=== PATIENT | female | born 1935 | race Caucasian/White ===

== ENCOUNTER 2018-12-11 20:51 | Inpatient (IN) | payer MEDICARE, OTHER ==
[~2018-12-11 20:51] MED LIST: ISOVUE-370 76%-LOCM 1 ML ONE
[2018-12-11] MEDS ORDERED: Ondansetron ODT 4 MG TAB PO PRN (22:08)
[2018-12-11] MEDS ORDERED: Ondansetron PF 4 MG/2 ML Vial IVP PRN (22:08)
[2018-12-11] MEDS ORDERED: Lactated Ringer's 1,000 ML IV SCH ×2 (22:15→22:30)
[2018-12-11] MEDS ORDERED: Vancomycin HCl 0.75 GM in Premix Bag 1 BAG IVPB SCH (22:15)
[2018-12-11] MEDS ORDERED: Potassium Chloride 20 MEQ TAB PO SCH (22:45)
[2018-12-11] MEDS ORDERED: Piperacillin/Tazobactam 2.25 GM in Sodium Chloride 0.9% 100 ML IVPB SCH (22:45)
[2018-12-11 22:48] LABS: Actual Bicarbonate (HCO3a) 13.9 mEq/L (22-28); Base Excess (BEa) -11.3 mEq/L (-2.0 to +3.0); Calcium, Ionized 1.41 mmol/L (1.12-1.30); Carboxyhemoglobin (COHb) 1.2 gm% (0.0-3.0); Hemoglobin (Hb) 10.4 g/dL (12.0-16.0); O2 Tension (PaO2) 70.8 mmHg (> 60.0); Potassium - ABG Lab 3.26 mmol/L (3.70-5.30)
[2018-12-11 22:50] LABS: Puncture Site RRA
--- NOTE | 2018-12-11 22:50 | PDOC.FPRHP ---
- History of Present Illness Chief Complaint: weakness History of Present Illness: Mrs. Sharma is an 83yo CF with h/o HTN, HLD who presents as a transfer from [place] for GI bleed, generalized weakness, and concern for metastatic cancer. Pt initially was admitted in [place] by her PCP for generalized weakness and melena x2-3 weeks. Pt's initial work up included a CT showed multiple nodules in lungs as well as extensive masses replacing most of the normal hepatic parenchyma; enlarged lynph nodes in LLQ adjacent to segment of sigmoid colon with bowel wall thickening. Dr. Hall was consulted who planned for colonoscopy; however pt was unable to tolerate bowel prep and began to have a change in clinical status on the morning of transfer. She also began to have an elevated WBC and O2 demand. PCP and Dr. Hall then recommended transfer to [facility] for further eval and management. Family reports pt began to experienced AMS, increased weakness, difficulty swallowing as well as cough and choking with any PO intake. Family also states patient was at her baseline mentation approx 1 week ago but has had a steady but rapid decrease in mentation and activity over this time. She also was treated with abx for a UTI approx 2 weeks ago. Pt currently denies any abdominal pain, no n/v, fever/chills, or chest pain. SHe does endorse constipation and melena x3 weeks, last BM 3 days ago. - Allergies/Adverse Reactions Allergies Allergy/AdvReac Type Severity Reaction Status Date / Time adhesive Allergy Verified 12/08/18 16:38 coconut Allergy Verified 12/08/18 16:38 - Home Medications Medication Instructions Recorded Confirmed Type Diltiazem HCl [Cardizem CD] 240 mg PO DAILY cap 12/11/18 Rx Famotidine [Pepcid] 20 mg PO BID tab 12/11/18 Rx Ipratropium/Albuterol Sulfate 3 ml EZPAP [id number] PRN neb 12/11/18 Rx [DuoNeb] Lactated Ringer's 1,000 ml IV .[id number] bag 12/11/18 Rx Pantoprazole [Protonix] 40 mg PO BID tab 12/11/18 Rx Piperacillin/Tazobactam [Zosyn] 2.25 gm IVPB Q8HR #0 vial 12/11/18 Rx - History PMHx: HTN, HLD, Tachycardia, allergic rhinitis, OA PSHx: foot surgery FHx: Father - heart problems; Mother - CHF, COPD, DM; siblings - heart problems Social: Recently , non-smoker, 1 adult son who is mPOA, social drinker, no illicit drug use - Review of Systems ROS unobtainable: due to mental status (ROS may not be accurate) General: reports: weight/appetite/sleep changes (decreased), fatigue. denies: fever/chills, night sweats Eyes: denies: vision changes ENT: denies: nasal congestion, rhinorrhea Respiratory: reports: cough (with PO intake), shortness of breath. denies: congestion, exercise intolerance Cardiovascular: denies: chest pain, palpitation, edema Gastrointestinal: reports: constipation, GI bleeding (melena). denies: nausea, vomiting, diarrhea, abdominal pain Genitourinary: denies: incontinence, dysuria, polyuria Skin: denies: rashes, lesions Musculoskeletal: denies: pain Neurological: reports: weakness. denies: numbness, syncope - Vital signs BP: 105/53 HR: 72 RR: 20 Tmax: 97.4 Pox: 93% on 2.5L Wt: 57kg - Physical Exam Constitutional: NAD, other (A/O x1, time only, slow to answer, drowsy appearing. Must be asked questions repeatly to obtain answer.) HEENT: normocephalic and atraumatic, PERRLA, EOMI, conjunctiva clear, MMM Neck: supple, trachea midline Chest: no-tender to palpation Heart: RRR, normal S1/S2, no murmurs/rubs/gallops, pulses present, other (1+ pitting edema to BL ankles, left leg appears slightly more swollen then right) Lungs: CTAB, no respiratory distress, good air movement, no rales/rhonchi, no wheezing Abdomen: soft, non-tender, bowel sounds present, no masses/distention Musculoskeletal: normal structure Neurological: no focal deficit Skin: no rash/lesions Heme/Lymphatic: no unusual bruising or bleeding FMR H&P: Results - Labs Lab results: Ammonia 22 umol/L (18-72) 12/11/18 22:35 Additional comment: Labs from [place]: WBC 25 Hb 10.4 Plt 400 K 3.0 Cr 1.48 BUN 26 Ca 10.8 Tb 2.3 AST 429 ALT 111 AP 469 TP 5.4 Alb 2.5 - Radiology Interpretation CT scan - pelvis Status: report reviewed by me (Multiple nodules in lungs as well as extensive masses replacing most of the normal hepatic parenchyma; enlarged lynph nodes in LLQ adjacent to segment of sigmoid colon with bowel wall thickening.) FMR H&P: A/P - Problem List (1) GI bleed Current Visit: Yes Status: Acute Code(s): K92.2 - GASTROINTESTINAL HEMORRHAGE, UNSPECIFIED Qualifiers: GI bleed type/associated pathology: melena Qualified Code(s): K92.1 - Melena (2) Hypercalcemia Current Visit: Yes Status: Acute Code(s): E83.52 - HYPERCALCEMIA (3) Hypokalemia Current Visit: Yes Status: Acute Code(s): E87.6 - HYPOKALEMIA (4) Transaminitis Current Visit: Yes Status: Acute Code(s): R74.0 - NONSPEC ELEV OF LEVELS OF TRANSAMNS & LACTIC ACID DEHYDRGNSE (5) Tachycardia Current Visit: Yes Status: Acute Code(s): R00.0 - TACHYCARDIA, UNSPECIFIED (6) Acute respiratory failure with hypoxia Current Visit: Yes Status: Acute Code(s): J96.01 - ACUTE RESPIRATORY FAILURE WITH HYPOXIA (7) Liver mass, right lobe Current Visit: No Status: Acute Code(s): R16.0 - HEPATOMEGALY, NOT ELSEWHERE CLASSIFIED (8) Hypertension Current Visit: No Status: Chronic Code(s): I10 - ESSENTIAL (PRIMARY) HYPERTENSION (9) HLD (hyperlipidemia) Current Visit: Yes Status: Acute Code(s): E78.5 - HYPERLIPIDEMIA, UNSPECIFIED - Plan Mrs. Sharma is an 83yo CF with h/o HTN, HLD who presents as a transfer from [place] for GI bleed, generalized weakness, and concern for metastatic cancer. #GI Bleed 2/2 suspected metastatic cancer - Melena x3 weeks, currently asx, Hb stable at 10.4 but down from 12 at previous visits - No acute bleed - 2/2 bleed will hold VTE anticoagulation - Known to Dr. Hall, consulted, apprec recs - NPO for possibly endoscopy - Protonix for GI ppx # Acute Hypoxic respiratory failure - Increased O2 demands at [facility], on 2.5L and satting low 90s, denies dyspnea - left leg edema > right, concern for PE - will order CTA chest for PE r/o - will monitor respiratory status closely #Liver mets and elevated LFTs - LFTs elevated from baseline - likely 2/2 GI malignancy, pending GI workup - will trend levels - with altered mentation, will order ammonia level - will check Coag studies #AMS - occurring for past 1 week, decline in last 24 hours - will order ammonia and ABG to assess hypercapnia - likely delerium vs dementia vs hepatic encephalopathy vs hypercapnic encephalopathy - will monitor #Leukocytosis - VSS - started on Zosyn at [place], will cont and add Vanc - UA, CX, and BCx ordered - will check Procal #Hypokalemia - 3.0 on last BMP, will replace and monitor with daily BMP - will check Mg and Phos # MARCO ANTONIO on CKDII - Baseline Cr 1.0 at previous visits, likely prerenal, will continue IVF of LR @ 150 - monitor daily BMP #Hypercalcemia - Corrected Ca 12.0, likely 2/2 malignancy and hypovolemia - LR @150cc/hr x3 hours, will reassess volume status and continue IVF as needed - consider further workup including PTH and Vit D if does not correct #Elevated TSH - TSH 8 at previous hospital, will check free T4 and T3 VTE: SCDs 2/2 GI bleed Diet: NPO for GI recs Code: Full - previously DNR however revoked due to met diagnosis. Son is mPOA and agreed to revoke at this time. Consider Palliative Care consult pending family wishes. Disposition/LOS: Admitted to [facility] for monitoring. Pending GI eval, resolution of MARCO ANTONIO, leukocytosis eval. Anticipate hospitalization 4-5 days. FMR H&P: Upper Level - Pertinent history I was present with the planner internship during the HPI. I asked questions as well. I reviewed the above plan and agree. I made any edits as needed. - Pertinent findings General: Pt only Alert and Orientedx1. No acute distress. Cardio: RRR, no murmurs or gallops Resp: CTA-B, no wheezes or crackles Abdomen: Mildly tender to palpation. Possibly some mild hepatomegaly Ext: +1 edema in LE bilaterally. Pt labs reviewed from [place]. WBC has been uptrending the last few days. WBC 25. Pt corrected calcium for hypoalbunemia is 12. Pt has mild hypercalcemia. Liver Enzymes continue to trend upwards. Bili is elevated. - Plan Date/Time: 12/11/18 3539 I, Timothy Gomes, PGY-3, have evaluated this patient and agree with findings/ plan as outlined by planner internship resident. Pertinent changes/additions are listed here. At this time pt has had history of melenotic stools. She has continued to have increased weakness. She continues to decompensate from a respiratory standpoint. She is requiring O2. Pt had CT abdomen pelvis which showed Colon mass and Liver Mets. GI has been consulted- Dr. Hall. Follow recs. Pt liver enzymes continue to trend upwards with bilirubin. Will check RUQ-US. Will get ammonia level as patient has waxing and waning confusion. Pt corrected Ca is 12. Mild hypercalcemia. WIll tx with mildly aggresive fluid hydration. Could be attributing to confusion. Pt also has worsening leukocytosis. Has been on zosyn for a few days. Will check blood/urine cx and check procal. Will add vancomycin for abx coverage. Pt at this time is Full code per Son is MPOA. Discussed prognosis with family and voiced understanding at this time. Will await Isabel recs and consider Palliative care in future. Please see above plan for detailed plan.
[2018-12-11 23:14] LABS: INR-International Normal Ratio 1.3; PTT 35.2 SEC (22.9-36.1); Prothrombin Time 15.8 SEC (12.0-14.7)
--- NOTE | 2018-12-11 23:20 | CT ---
CT angiogram of chest performed with intravenous contrast enhancement with 3-D reconstructions HISTORY: Shortness of breath. COMPARISON: 12/06/2018 study. FINDINGS: There is been development of mild bilateral pleural effusions with bibasilar atelectatic ap pearing lung changes right greater than left. These changes are entirely new as compared to the prior examination and are obscuring the lower lobe pulmonary nodules seen on the prior exam. Other pu lmonary nodules are still identified. The pulmonary artery opacification is poor and not diagnostic for evaluation for pulmonary embolus CT Hounsfield units are only 116. The thoracic aorta is normal in caliber. Liver metastases are again demonstrated. IMPRESSION: 1. Nondiagnostic study for evaluation for pulmonary embolus. 2. Development of mild bilateral pleural effusions with marked bibasilar atelectatic lung changes. 3. Pulmonary nodules and liver metastases.
[2018-12-11] MEDS ORDERED: Vancomycin HCl 1.5 GM in Sodium Chloride 0.9% 250 ML 300 ML IVPB SCH (23:30)
[2018-12-11 23:33] LABS: Magnesium 1.7 mg/dL (1.6-2.6); Phosphorus 3.3 mg/dL (2.3-4.7)
[2018-12-12 00:01] LABS: Free T4 (Free Thyroxine) 0.75 ng/dL (0.70-1.48)
--- NOTE | 2018-12-12 00:42 | PDOC.EVN ---
Event Note - Event Note Event Note: Date/Time: 12/12/18 0040 I personally evaluated the patient and discussed the management with Dr. Vikki Hayes on 12/11/2018 I agree with the History, Examination, Assessment and Plan documented above with any addition or exceptions noted below - 83 yo female with h/o HTN, HLD, CAD transferred from [place] where patient had been admitted for dehydration and deconditioning. Prior to admission, patient started to feel weak about 1 month ago. Reports some decreased appetite and energy. Seen in ER on 12/03 and diagnosed with UTI and started on abx. Instructed to follow-up with PCP who also elicited a h/o 16 pound weight loss. Had labs and CT scan performed. Patient also told she has noted some dark, tarry stools for the last [address] showed multiple nodules in lungs as well as extensive masses replacing most if the normal hepatic parenchyma; enlarged lynph nodes in LLQ adjacent to segment of sigmoid colon with bowel wall thickening. Patient was referred to Dr. Hall and he suggested admission due to her weakness in order to get her ready for a colonoscopy. Patient was admitted to [place] on 12/08 by her PCP and patient initially responded to IVF and abx. Today she was noted to be more lethargic and confused, and had decreased O2 sats. Repeat labs also showed increasing liver enzymes and she now endorsed some RUQ pain. T97.4 P72 RR20 BP 105/53 Exam repeated by me and agree with resident's findings. Labs: WBC=-25.0, H/H=10.4/33.9, Uhv=952, Diff=71N/3B/12L, Yn=192, K= 3.0, Pz=808, CO2=16, BUN/Cr=26/1.48, Cahv=852, Ca=10.8, Corrected Ca=12.0, Alb= 2.5, AST/ALT 126/48 -> 429/111, lew phos 625 -> 469, tbili=2.3,TSH=8.5331 A/P: 1 ) Hepatic masses - most likely metastatic cancer - will d/w GI possibility of percutaneous biopsy versus colonoscopy. 2) MARCO ANTONIO/Dehydration- continue IVF and recheck in AM, 3) Possible GI bleed- will trend her H/H. 4) HTN- hold BP for now 5) Leukocytosis - continue vanc/zosyn. Will check U/A and culture given recent h/o UTI. Blood cultures drawn.
[2018-12-12] MEDS: Levothyroxine Sodium 25 MCG TAB PO SCH (05:46)
[2018-12-12] MEDS: Piperacillin/Tazobactam 2.25 GM in Sodium Chloride 0.9% 100 ML IVPB SCH ×3 (05:46→18:31)
[2018-12-12 06:04] LABS: ALT (SGPT) 121 U/L (8-55); AST (SGOT) 482 U/L (5-34); Albumin 2.1 g/dL (3.4-4.8); Alkaline Phosphatase 396 U/L (40-150); Anion Gap 16 mmol/L (10-20); BUN (Urea Nitrogen) 27 mg/dL (9.8-20.1); Bilirubin, Total 2.1 mg/dL (0.2-1.2); Calc. Creatinine Clearance 29 mL/min (70-130); Calcium 10.1 mg/dL (7.8-10.44); Carbon Dioxide 16 mmol/L (23-31); Chloride 108 mmol/L (98-107); Estimated GFR-MDRD 37; Globulin 2.8 g/dL (2.4-3.5); Glucose 72 mg/dL (83-110); Potassium 3.8 mmol/L (3.5-5.1); Protein, Total 4.9 g/dL (6.0-8.3); Sodium 136 mmol/L (136-145)
--- NOTE | 2018-12-12 06:13 | PDOC.FM ---
- Subjective Subjective: Mrs. Sharma appeared calm but was having moderate difficulty breathing during the time of evaluation. She was able to respond to questions and assist with the HPI, but was only A&O x1. She denied any overnight problems, specifically any abdominal pain, chest pain or shortness of breath. Multiple family members were present in the room at the time of evaluation and assisted both with the HPI as well as with coordination with the primary MPOA and the most likely pathway forward. - Objective Vital Signs & Weight: Vital Signs (12 hours) Temp Pulse Resp BP Pulse Ox 12/12/18 04:00 98.5 F 71 20 104/61 93 L 12/12/18 00:00 97.4 F L 72 20 105/53 L 93 L Weight Weight 57.334 kg Result Diagrams: 12/12/18 05:06 12/12/18 05:06 Phys Exam - Physical Examination Constitutional: NAD Moderate difficult breathing with O2 NC at 3L HEENT: PERRLA, moist MMs, sclera anicteric Neck: no nodes, supple, full ROM Respiratory: no wheezing, no rales, no rhonchi, clear to auscultation bilateral Cardiovascular: RRR, no significant murmur, no rub Gastrointestinal: soft, non-tender, no distention Musculoskeletal: no edema, pulses present Neurological: non-focal, moves all 4 limbs Lymphatic: no nodes Skin: no rash Dx/Plan - Plan Plan: 1. GI Bleed 2/2 suspected Metastatic Cancer -Melena x3 weeks, currently asymptomatic, Hg/Hct relatively stable at 9.7/32.1 but down from 12 at previous visits -No acute bleed -2/2 bleed will hold VTE anticoagulation -Dr. Hall (GI) consulted, currently awaiting recommendations -NPO for possibly endoscopy -Protonix for GI ppx 2. Acute Hypoxic Respiratory Failure -Increased O2 demands at [place], on 3L NC with O2 in low 90s - denies dyspnea -Left Leg Edema > Right, concern for PE -CTA Chest: No evidence of PE -Venogram: No evidence of DVTs, bilaterally -Multiple nodules noted within lung parenchema, likely metastatic -Will continue monitor respiratory status closely 3. Liver Metastasis -LFTs elevated from baseline -Likely 2/2 GI malignancy, pending GI workup -Will continue to trend levels -Ammonia: 22 -PT: 15.8 -INR: 1.3 -APTT: 35.2 4. AMS -Occurring for past 1 week, significant decline in last 24 hours -ABG: Pending -Likely delerium vs dementia vs hepatic encephalopathy vs hypercapnic encephalopathy -Will continue to monitor 5. Leukocytosis -Vital signs currently stable -Started on Zosyn at [place], vanc added upon admission -UA: No evidence of Nitrites or WBCs -Urine Culture: No Growth at 24 Hours -Blood Culture: No Growth at 24 Hours -Procal: 5.26 6. Hypokalemia -K 3.0 on admission, currently last BMP, 3.8 on 12/12/18 -Mg: Pending -Phos: Pending 7. MARCO ANTONIO on CKDII -C4: 1.4, up from baseline Cr 1.0 at previous visits, likely prerenal -Continue IV fluid resuscitation - LR @ 150 ml/hr -Continue to monitor daily BMP 8. Hypercalcemia -Corrected Ca 12.0, likely 2/2 malignancy and hypovolemia -LR @ 150 ml/hr - will reassess volume status and continue IVF as needed -Consider further workup including PTH and Vitamin D if Ca does not correct 9. Elevated TSH -TSH 8 at previous hospital -T3: 0.75 -T4: < 1 VTE: SCDs 2/2 GI bleed Diet: NPO for GI recs Code: Full - Previously DNR but Revoked due to Metastatic Cancer Diagnosis. Dispo: Admitted to Telemetry for monitoring. Patient failed initial bowel prep and will require additional GI coordination and recommendations. Anticipate hospitalization > 2 days. Addendum - Attending - Attending Attestation Date/Time: 12/12/18 3988 I personally evaluated the patient and discussed the management with Dr. Rogers. I agree with the History, Examination, Assessment and Plan documented above with any addition or exceptions noted below. Repeat CT, await GI, monitor closely.
[2018-12-12 06:44] LABS: Band 11 % (5-11); Hemoglobin 9.7 g/dL (12.0-16.0); Lymphocytes 10 % (21-51); MDiff Complete? YES; Mean Corpuscular HGB CONC 30.1 g/dL (32.0-36.0); Mean Corpuscular Hemoglobin 26.3 pg (27.0-31.0); Mean Corpuscular Volume 87.4 fL (78.0-98.0); Mean Platelet Volume 6.9 fL (7.4-10.4); Neutrophil 79 % (42-75); Platelet Count 373 thou/uL (130-400); RBC Distribution Width 15.8 % (11.5-14.5); Red Blood Cell (RBC) Count 3.67 mill/uL (4.20-5.40)
[2018-12-12 06:49] LABS: Bacteria/HPF None Seen HPF (None Seen); Bilirubin Negative (Negative); Blood, Urine Negative (Negative); Clarity Clear (Clear); Glucose, Urine (Dipstick) Normal (Negative); Leukocyte Negative Leu/uL (Negative); Nitrite Negative (Negative); Protein, Urine (Dipstick) 20 mg/dL (Neg-Trace); RBC/HPF 0-3 HPF (0-3); Squamous Epithelial None Seen HPF (0-3); WBC/HPF 0-3 HPF (0-3)
[2018-12-12] MEDS: Pantoprazole 40 MG VIAL IVP SCH (07:51)
[2018-12-12] MEDS: Sodium Chloride 0.9% (PF) 10 ML VIAL FS PRN (07:51)
[2018-12-12] MEDS ORDERED: Prevnar 13-Val Conj/PF 0.5 ML SYRINGE IM ONE (09:00)
--- NOTE | 2018-12-12 09:18 | ULT ---
US Gallbladder RUQ HISTORY: Right upper quadrant pain COMPARISON: CT of chest done earlier yesterday. FINDINGS: Real-time imaging of the right upper quadrant shows a normal-appearing gallbladder. The com mon duct is 6 mm. Innumerable liver masses are demonstrated consistent with the previous CT study. The pancreas region is obscured on this exam. The liver measures 22 cm in length IMPRESSION: Diffuse liver masses very suspicious for metastatic disease. Liver is enlarged.
[2018-12-12] MEDS: Lactated Ringer's 1,000 ML IV SCH ×2 (09:20→16:45)
--- NOTE | 2018-12-12 09:21 | ULT ---
US Venous Doppler Bilat HISTORY: Bilateral lower extremity pain and swelling. COMPARISON: None. FINDINGS: Real-time color Doppler evaluation right and left lower extremities were performed from e[place]io in to calf. This includes evaluation the common femoral superficial profundofemoral saphenous popliteal and posterior tibial veins. This shows a patent deep venous system with normal compressibility and augmentation. IMPRESSION: No evidence of DVT of either lower extremity
[2018-12-12] MEDS ORDERED: GoLYTELY 4,000 ml Bottle PO SCH (17:30)
[2018-12-12] MEDS ORDERED: Vancomycin HCl 500 MG in Sodium Chloride 0.9% 100 ML IVPB SCH (23:00)
[2018-12-13] MEDS: Piperacillin/Tazobactam 2.25 GM in Sodium Chloride 0.9% 100 ML IVPB SCH ×5 (01:17→23:53)
[2018-12-13] MEDS: Lactated Ringer's 1,000 ML IV SCH ×2 (01:21→05:54)
--- NOTE | 2018-12-13 05:41 | PDOC.FM ---
- Subjective Subjective: Mrs. Sharma appeared to be slightly out of breath during the time of the evaluation, and complained of having a very poor night due to her ongoing efforts to finish her bowel prep. She was A&O x3, and denies any chest pain, abdominal pain or shortness of breath. She reiterated that she wanted to remain Full Code, and her [id number] stated that the rest of the family was in agreement with her choice. - Objective Vital Signs & Weight: Vital Signs (12 hours) Temp Pulse Resp BP Pulse Ox 12/13/18 04:00 98.9 F 83 22 H 114/45 L 92 L 12/13/18 00:00 99.3 F 77 24 H 109/43 L 94 L 12/12/18 22:00 99.2 F 80 20 12/12/18 20:00 95 12/12/18 19:59 97.7 F 74 20 125/59 L 95 Weight Weight 57.334 kg I&O: 12/11/18 12/12/18 12/13/18 06:59 06:59 06:59 Intake Total 1445 Output Total 600 Balance 845 Result Diagrams: 12/13/18 04:38 12/13/18 04:38 Phys Exam - Physical Examination Tachypneic but A&Ox3 HEENT: PERRLA, sclera anicteric, oral pharynx no lesions Patient appears mildly dehydrated Neck: no nodes, supple, full ROM Respiratory: no wheezing, no rales, no rhonchi, clear to auscultation bilateral Cardiovascular: RRR, no significant murmur, no rub Gastrointestinal: soft, non-tender, no distention Musculoskeletal: pulses present Trace LE edema bilaterally Neurological: non-focal, moves all 4 limbs Lymphatic: no nodes Psychiatric: normal affect, A&O x 3 Skin: no rash Dx/Plan - Plan Plan: 1. GI Bleed 2/2 suspected Metastatic Cancer -Melena x3 weeks, currently asymptomatic, Hg/Hct relatively stable at 9.7/32.1 but down from 12 at previous visits -No acute bleed at this time -2/2 bleed will hold VTE anticoagulation -Dr. Hall (GI) consulted, currently awaiting recommendations -NPO for possibly endoscopy -Protonix for GI prophylaxis 2. Acute Hypoxic Respiratory Failure -Increased O2 demands at [place], on 3L NC with O2 in low 90s - denies dyspnea -Left Leg Edema > Right, concern for PE -CTA Chest: No evidence of PE -Venogram: No evidence of DVTs, bilaterally -Multiple nodules noted within lung parenchema, likely metastatic cancer -Will continue monitor respiratory status closely 3. Liver Metastasis -LFTs elevated from baseline -Likely 2/2 GI malignancy, pending GI workup -Will continue to trend levels -Ammonia: 22 -PT: 15.8 -INR: 1.3 -APTT: 35.2 4. AMS -Occurring for past 1 week, significant decline in last 48 hours -ABG: Mild Metabolic Acidosis -Likely delerium vs dementia vs hepatic encephalopathy vs hypoxic encephalopathy -Will continue to monitor 5. Leukocytosis -Vital signs currently stable -Started on Zosyn at [place], vanc added upon admission -UA: No evidence of Nitrites or WBCs -Urine Culture: No Growth at 24 Hours -Blood Culture: No Growth at 24 Hours -Procal: 5.26 6. Hypokalemia -K 3.0 on admission, currently last BMP, 3.8 on 12/12/18 -Mg: Pending -Phos: Pending 7. MARCO ANTONIO on CKDII -C4: 1.4, up from baseline Cr 1.0 at previous visits, likely prerenal -Continue IV fluid resuscitation - LR @ 150 ml/hr -Continue to monitor daily BMP 8. Hypercalcemia -Corrected Ca 12.0, likely 2/2 malignancy and hypovolemia -LR @ 150 ml/hr - will reassess volume status and continue IVF as needed -Consider further workup including PTH and Vitamin D if Ca does not correct 9. Elevated TSH -TSH 8 at previous hospital -T3: 0.75 -T4: < 1 VTE: SCDs 2/2 GI bleed Diet: NPO for GI recs Code: Full - Previously DNR but Revoked due to Metastatic Cancer Diagnosis. Dispo: Admitted to Telemetry for monitoring. Patient failed initial bowel prep and will require additional GI coordination and recommendations. Anticipate hospitalization > 2 days. Addendum - Attending - Attending Attestation Date/Time: 12/13/18 2446 I personally evaluated the patient and discussed the management with Dr. Rogers. I agree with the History, Examination, Assessment and Plan documented above with any addition or exceptions noted below. I saw Ms. Sharma after her colonoscopy, results pending. She is sleepy but rousable. Will await results and appropriate consultations pending.
[2018-12-13 05:44] LABS: Hemoglobin 9.4 g/dL (12.0-16.0); Mean Corpuscular HGB CONC 31.2 g/dL (32.0-36.0); Mean Corpuscular Hemoglobin 26.9 pg (27.0-31.0); Mean Corpuscular Volume 86.2 fL (78.0-98.0); Mean Platelet Volume 7.1 fL (7.4-10.4); Platelet Count 374 thou/uL (130-400); RBC Distribution Width 15.8 % (11.5-14.5); White Blood Cell (WBC) Count 21.2 thou/uL (4.8-10.8)
[2018-12-13 05:45] LABS: Band 23 % (5-11); Lymphocytes 4 % (21-51); MDiff Complete? YES; Monocytes 9 % (0-10); Neutrophil 64 % (42-75); Nucleated RBC 1 % (0)
[2018-12-13] MEDS: Levothyroxine Sodium 25 MCG TAB PO SCH (05:46)
[2018-12-13 05:48] LABS: ALT (SGPT) 184 U/L (8-55); AST (SGOT) 878 U/L (5-34); Albumin 2.1 g/dL (3.4-4.8); Alkaline Phosphatase 341 U/L (40-150); Anion Gap 19 mmol/L (10-20); BUN (Urea Nitrogen) 30 mg/dL (9.8-20.1); Bilirubin, Total 2.4 mg/dL (0.2-1.2); Calc. Creatinine Clearance 25 mL/min (70-130); Calcium 9.9 mg/dL (7.8-10.44); Carbon Dioxide 14 mmol/L (23-31); Chloride 110 mmol/L (98-107); Estimated GFR-MDRD 32; Globulin 2.9 g/dL (2.4-3.5); Potassium 3.8 mmol/L (3.5-5.1); Sodium 139 mmol/L (136-145)
[2018-12-13] MEDS ORDERED: Dextrose 50% Abboject 50 ML SYRINGE ONE (06:02)
[2018-12-13 06:10] LABS: Glucose 31 mg/dL (83-110)
[2018-12-13] MEDS ORDERED: Dextrose 5% in Water 1,000 ML IV PRN (06:15)
[2018-12-13] MEDS ORDERED: Dextrose 50% Abboject 50 ML SYRINGE SLOW IVP PRN (06:15)
[2018-12-13] MEDS: Dextrose 5%-Lactated Ringers 1,000 ML IV SCH ×3 (07:01→23:53)
[2018-12-13] MEDS: Sodium Chloride 0.9% (PF) 10 ML VIAL FS PRN (08:30)
[2018-12-13] MEDS: Pantoprazole 40 MG VIAL IVP SCH (08:31)
--- NOTE | 2018-12-13 11:18 | CON ---
DATE OF CONSULTATION: 12/12/2018 HISTORY OF PRESENT ILLNESS: Ms. Alicia Sharma is a very pleasant 83-year-old female seen by me 4 days ago in my office and she was referred to me by Dr. Jose Hughes. The patient has been having anorexia, weight loss of 7 pounds over the last 6 weeks. She also had some vague abdominal pain, small frequent stools and hematochezia. The patient came to the ER approximately 10 days ago to have abdominal CAT scan. CAT scan showed multiple liver masses and pulmonary nodules suggestive of metastatic concern. It was felt that the patient have a colonoscopy to look for the source of cancer, though adequate chemotherapy can be tailored. The patient was scheduled to have a colonoscopy this morning at the [facility]. However, yesterday became somewhat dyspneic, obtunded, confused and has been transferred here. Started on IV antibiotics. This morning, she is actually awake, alert, and communicative. Denied any abdominal pain, nausea, or vomiting. She is also on antibiotic therapy. MEDICAL ILLNESSES: Hyperlipidemia SOCIAL HISTORY: She does not smoke, but drinks alcohol socially. PHYSICAL EXAMINATION: GENERAL: She is awake, alert, and communicative. VITAL SIGNS: Afebrile. Pulse is 74, blood pressure is 119/47 NECK: Supple. CARDIOVASCULAR: First and second heart sounds heard. LUNGS: Clear to auscultation. ABDOMEN: Soft. Abdomen is nondistended. Abdomen is nontender. No rebound, or guarding. EXTREMITIES: Reveal no edema. LABORATORY DATA: From today CBC; WBC 21,000, hemoglobin 9.7, hematocrit 32.1, platelets 373,000, polymorphs 79, bands 11, lymphocytes 10. Chemistry shows normal chem 7. Lytes are normal. BUN is 28, bilirubin 0.20, glucose normal, bilirubin 2.3, AST is 46, ALT 47, alkaline phosphatase is elevated .Today bilirubin is 2.1, AST 482, ALT 121,. Abdominal ultrasound today shows hepatomegaly with liver masses. 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 She does have hematochezia, Possibly she could have colonic primary. PLAN: Colonoscopy tomorrow. I did talk to Ms. Sharma. I explained to her the above. I explained to her to see whether she will take the prep today for colonoscopy, and colonoscopy planned for tomorrow. If colonoscopy is negative, we may consider EGD. Job ID: [id number] [id number]
--- NOTE | 2018-12-13 12:48 | OP ---
DATE OF PROCEDURE: 12/13/2018 PROCEDURE PERFORMED: Colonoscopy with polypectomy, biopsy. PREOPERATIVE DIAGNOSIS: An 83-year-old female with anorexia, weight loss, change in bowel habits, and also hematochezia. The patient is undergoing colonoscopy. POSTOPERATIVE DIAGNOSES: 1. Poor preparation, has retained stool in the colon and also right colon. 2. Left-sided diverticular disease. 3. Large polyp in the sigmoid colon area, status post biopsy and polypectomy. DESCRIPTION OF PROCEDURE: The patient was placed on her left lateral position and was given sedation by Anesthesia Department. A rectal exam was done before the scope was advanced into the rectum. No lesions felt on rectal exam. The patient had large amount semi-solid stool, came out, on the rectal exam. A Pentax video colonoscope was introduced into the rectum and advanced all the way into the cecum. The patient had no pathology in the cecum, ascending colon, hepatic flexure. The transverse colon, splenic flexure, no pathology. The patient predominantly had left-sided diverticular disease. A large polypoid lesion in the sigmoid colon was seen. Initially, it was biopsied. However, careful examination revealed that it was on a long, thick stalk. So, it was elected to do a polypectomy. The polypectomy was done in piecemeal, and post polypectomy, the polypectomy site appeared very well cauterized and no bleeding was seen. Water was irrigated and washed out, and I looked at the polypectomy site one more time. No bleeding seen. The colon decompressed and the scope removed. RECOMMENDATION: 1. Keep the patient on clear liquid diet. 2. Await colon biopsy. If the colon biopsy shows malignancy, I believe she needs no more further workup. If the biopsy comes as negative for malignancy, then we have to look for another source of primary cancer. Job ID: [id number] [facility]
[2018-12-13] MEDS ORDERED: PROPOFOL 200 MG/20 ML VIAL ONE (16:47)
[2018-12-13] MEDS ORDERED: PHENYLEPHRINE-NS 100 MCG/ML 10 ML SYRINGE ONE (16:47)
[2018-12-13 22:36] LABS: Vancomycin, Trough 12.5 ug/mL
[2018-12-13] MEDS: Vancomycin HCl 750 MG in Sodium Chloride 0.9% 250 ML 250 ML IVPB SCH (23:40)
[2018-12-14] MEDS: Piperacillin/Tazobactam 2.25 GM in Sodium Chloride 0.9% 100 ML IVPB SCH ×4 (05:29→23:51)
[2018-12-14] MEDS: Levothyroxine Sodium 25 MCG TAB PO SCH (05:30)
--- NOTE | 2018-12-14 06:02 | PDOC.FM ---
- Subjective Subjective: Mrs. Sharma appeared tired but was resting comfortably at the time of examination. Her son and niece were in the room, and a lengthy discussion was had about the likelihood of malignancy due to imaging results suggestive of metastatic disease. All parties are in agreement that aggressive treatment is desired, but they were receptive to the idea of consulting Palliative Care in order to have a full spectrum of treatment options available. They were extremely distressed about the possibility of metastatic disease, but optimistic about treatment. - Objective Vital Signs & Weight: Vital Signs (12 hours) Temp Pulse Resp BP Pulse Ox 12/14/18 04:00 97.6 F 79 24 H 143/62 H 92 L 12/14/18 00:00 77 24 H 12/13/18 20:00 97.7 F 79 28 H 131/62 100 Weight Weight 69.536 kg I&O: 12/12/18 12/13/18 12/14/18 06:59 06:59 06:59 Intake Total 4145 1540 Output Total 1150 425 Balance 2995 1115 Result Diagrams: 12/14/18 05:19 12/14/18 05:19 Phys Exam - Physical Examination Constitutional: NAD HEENT: PERRLA, moist MMs, sclera anicteric, oral pharynx no lesions Neck: no nodes, supple, full ROM Respiratory: no wheezing, no rales, no rhonchi, clear to auscultation bilateral (Poor air movement with diminished respiratory effort.) Cardiovascular: RRR, no significant murmur, no rub Gastrointestinal: soft Mild distention with TTP in RUQ Musculoskeletal: no edema, pulses present Neurological: non-focal, normal sensation Lymphatic: no nodes Psychiatric: normal affect Skin: no rash Dx/Plan - Plan Plan: 1. GI Bleed 2/2 suspected Metastatic Cancer -Melena x3 weeks, currently asymptomatic, Hg/Hct relatively stable at 9.7/32.1 but down from 12 at previous visits -No acute bleed at this time -Hold VTE anticoagulation -Dr. aHll (GI) performed colonoscopy on 12/13/18, currently awaiting recommendations -May likely return to Heart Healthy Diet -Protonix for GI prophylaxis 2. Acute Hypoxic Respiratory Failure -Increased O2 demands at [facility], on 3L NC with O2 in low 90s - denies dyspnea -CTA Chest: No evidence of PE -Venogram: No evidence of DVTs, bilaterally -Multiple nodules noted within lung parenchema, likely metastatic cancer -Will continue monitor respiratory status closely 3. Liver Metastasis -LFTs elevated from baseline -Likely 2/2 to GI malignancy, pending GI workup and biopsy from colonoscopy -Ammonia: 22 -PT: 15.8 -INR: 1.3 -APTT: 35.2 4. AMS -Occurring for past 1 week, significant decline in last 48 hours -ABG: Mild Metabolic Acidosis -Likely delerium vs dementia vs hepatic encephalopathy vs hypoxic encephalopathy -Will continue to monitor 5. Leukocytosis -Vital signs currently stable -Started on Zosyn at [facility], vanc added upon admission -UA: No evidence of Nitrites or WBCs -Urine Culture: No Growth at 48 Hours -Blood Culture: No Growth at 48 Hours -Procal: 5.26 6. Hypokalemia, resolved -K 3.0 on admission, currently last BMP, 3.8 on 12/12/18 -M.7 -Phos: 3.3 7. MARCO ANTONIO on CKDII -C4: 1.4, up from baseline Cr 1.0 at previous visits, likely prerenal -Continue IV fluid resuscitation - LR @ 150 ml/hr -Continue to monitor daily BMP 8. Hypercalcemia, resolved -Corrected Ca initially 12.0, likely 2/2 malignancy and hypovolemia -LR @ 150 ml/hr - will continue to reassess volume status and continue IVF as needed 9. Elevated TSH -TSH 8 at previous hospital -T3: 0.75 -T4: < 1 VTE: SCDs Diet: May likely return to Heart Healthy Diet Code: Full - Previously DNR but Revoked due to Metastatic Cancer Diagnosis. Dispo: Admitted to Telemetry for monitoring. Colonoscopy performed on 12/13/18 - awaiting biopsy results and further GI recommendations. Will suggest Palliative Care consult this AM. Anticipated hospitalization > 2 days.
[2018-12-14 06:08] LABS: Anisocytosis SLIGHT = 6-15 cells (100X) (0-5/hpf); Band 25 % (5-11); Hemoglobin 10.1 g/dL (12.0-16.0); Lymphocytes 5 % (21-51); MDiff Complete? YES; Mean Corpuscular HGB CONC 30.7 g/dL (32.0-36.0); Mean Corpuscular Hemoglobin 26.2 pg (27.0-31.0); Mean Corpuscular Volume 85.2 fL (78.0-98.0); Mean Platelet Volume 7.2 fL (7.4-10.4); Monocytes 9 % (0-10); Neutrophil 61 % (42-75); Platelet Count 375 thou/uL (130-400); RBC Distribution Width 15.7 % (11.5-14.5); Red Blood Cell (RBC) Count 3.85 mill/uL (4.20-5.40); White Blood Cell (WBC) Count 33.9 thou/uL (4.8-10.8)
[2018-12-14 06:10] LABS: ALT (SGPT) 163 U/L (8-55); AST (SGOT) 497 U/L (5-34); Alkaline Phosphatase 321 U/L (40-150); Anion Gap 15 mmol/L (10-20); BUN (Urea Nitrogen) 30 mg/dL (9.8-20.1); Bilirubin, Total 2.3 mg/dL (0.2-1.2); Calc. Creatinine Clearance 33 mL/min (70-130); Calcium 10.4 mg/dL (7.8-10.44); Carbon Dioxide 16 mmol/L (23-31); Chloride 110 mmol/L (98-107); Estimated GFR-MDRD 34; Globulin 2.8 g/dL (2.4-3.5); Glucose 110 mg/dL (83-110); Protein, Total 4.8 g/dL (6.0-8.3); Sodium 138 mmol/L (136-145)
[2018-12-14] MEDS: Pantoprazole 40 MG VIAL IVP SCH (08:28)
[2018-12-14] MEDS: Sodium Chloride 0.9% (PF) 10 ML VIAL FS PRN (08:29)
[2018-12-14] MEDS: Dextrose 5%-Lactated Ringers 1,000 ML IV SCH ×3 (09:21→23:54)
--- NOTE | 2018-12-14 11:53 | PRG ---
DATE OF SERVICE: 12/14/2018 Ms. Sharma is a very unfortunate, pleasant 83-year-old lady, who was admitted with some GI bleeding. She was found on her initial workup to have widely metastatic cancer with primary unknown. A colonoscopy was performed and a large polyp found. We are still awaiting the pathology. Further evaluation, workup, and Oncology referral depends on results of the biopsy. We will also initiate Palliative Care. Job ID: [id number]
[2018-12-14] MEDS ORDERED: Potassium Chloride 40 MEQ in Sodium Chloride 0.9% 250 ML 250 ML IVPB SCH (13:30)
--- NOTE | 2018-12-14 20:05 | PRG ---
DATE OF SERVICE: 12/14/2018 SUBJECTIVE: This is an 83-year-old female with anorexia, weight loss, hematochezia, change in bowel habits. She had abdominal CAT scan done, which revealed sigmoid mass and also some lymphadenopathy. She also had liver mets and lung nodules. She underwent a colonoscopy yesterday with polypectomy. 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 The pathologist does not feel that the colonic mass is not causing the liver mets and lung mets. The recommendation was to have CT-guided liver biopsy. The patient is tolerating full liquid diet. Her appetite remains very poor. No abdominal pain. No nausea. No vomiting. PHYSICAL EXAMINATION: GENERAL: Appears comfortable. VITAL SIGNS: Afebrile, pulse is 76, blood pressure is 140/63. HEENT: She is icteric. CARDIOVASCULAR AND LUNGS: Within normal limits. ABDOMEN: Distended. Soft to touch. Nontender. She has hepatomegaly. LABORATORY DATA: From today; WBC has gone up to 33,900, hemoglobin is 10.1, hematocrit 32.8, MCV is 85.2, polymorphs 61, bands 25%. Chem-7; BUN is 30, creatinine 1.48, potassium 3, chloride 110. LFTs remain elevated. Bilirubin is 2.3, AST is 497, ALT 163, alkaline phosphatase 321. PT/INR on 12/11; PT 15.8, INR is 1.3. I did talk to Ms. Sharma about having a liver biopsy. The procedure was explained in detail. She is agreeable. I will plan for CT-guided liver biopsy tomorrow. I also ordered PT/INR today, so that liver biopsy can be done tomorrow. Job ID: [id number] MTDD
[2018-12-14] MEDS: Vancomycin HCl 750 MG in Sodium Chloride 0.9% 250 ML 250 ML IVPB SCH (23:43)
--- NOTE | 2018-12-15 05:21 | PDOC.FM ---
- Subjective Subjective: Mrs. Sharma appeared fatigued during the evaluation, but she was awake, alert, and denied and significant complaints over the night. She was mildly tachypneic on 3L nasal canula, but her respirations decreased and her O2Sats increased to 98% following raising the head of her bed. - Objective Vital Signs & Weight: Vital Signs (12 hours) Temp Pulse Resp BP Pulse Ox 12/15/18 03:29 98.2 F 87 18 158/79 H 92 L 12/15/18 00:00 88 26 H 12/14/18 20:00 97.6 F 79 24 H 135/63 99 12/14/18 19:57 99 Weight Admit Weight 57.334 kg Weight 71.123 kg I&O: 12/13/18 12/14/18 12/15/18 06:59 06:59 06:59 Intake Total 4145 1660 1800 Output Total 1150 850 650 Balance 2995 810 1150 Result Diagrams: 12/15/18 04:49 12/15/18 04:49 Phys Exam - Physical Examination Fatigued, tachypneic HEENT: PERRLA, moist MMs, sclera anicteric, oral pharynx no lesions Neck: supple, full ROM Respiratory: no wheezing, no rales, no rhonchi, clear to auscultation bilateral Poor air movement Cardiovascular: RRR, no significant murmur, no rub Gastrointestinal: soft, non-tender, no distention Musculoskeletal: pulses present Trace Edema Neurological: non-focal, moves all 4 limbs Psychiatric: A&O x 3 Skin: no rash Deviation from normal: Pallor Dx/Plan - Plan Plan: 1. GI Bleed 2/2 suspected Metastatic Cancer -Melena x3 weeks, currently asymptomatic, Hg/Hct relatively stable at 9.7/32.1 but down from 12 at previous visits -No acute bleed at this time -Hold VTE anticoagulation -Dr. Hall (GI) performed colonoscopy on 12/13/18, biopsy report indicated dysplasia -Additional CT-guided biopsy of liver masses needed for further diagnosis of primary cancer -Currently NPO for procedure planned on 12/15 -Protonix for GI prophylaxis 2. Acute Hypoxic Respiratory Failure -Increased O2 demands at [facility], on 3L NC with O2 in low 90s - denies dyspnea -CTA Chest: No evidence of PE -Venogram: No evidence of DVTs, bilaterally -Multiple nodules noted within lung parenchema, likely metastatic cancer -Multiple masses within liver parenchyma, possible mass effect contributing to poor O2Sat -Will continue monitor respiratory status closely 3. Liver Metastasis -LFTs elevated from baseline -Likely 2/2 to GI malignancy, pending CT-guided biopsy -Ammonia: 22 -PT: Pending -INR: Pending -APTT: Pending 4. AMS -Occurring for past 1 week, significant decline in last 48 hours -ABG: Mild Metabolic Acidosis -Likely delerium vs dementia vs hepatic encephalopathy vs hypoxic encephalopathy -Patient appears mildly improved, but will continue to monitor 5. Leukocytosis -Vital signs currently stable -Started on Zosyn at [place], vanc added upon admission -UA: No evidence of Nitrites or WBCs -Urine Culture: No Growth at 48 Hours -Blood Culture: No Growth at 48 Hours -Procal: 5.26 -Possible leukomoid reaction 2/2 to metastatic cancer -DC antibiotic regimen if all cultures remain negative at 72H 6. Hypokalemia -K 3.0 on admission with subsequent increase to 3.8, currentl 3.0 on 12/15/18 -M.7 -Phos: 3.3 -KCl 40 mEq IV ordered 7. MARCO ANTONIO on CKDII, resolved -C4: 1.48 on admission, 1.01 on 12/15/18 -Continue IV fluid resuscitation - LR @ 150 ml/hr -Continue to monitor daily BMP 8. Hypercalcemia, resolved -Corrected Ca initially 12.0, likely 2/2 malignancy and hypovolemia -LR @ 150 ml/hr - will continue to reassess volume status and continue IVF as needed 9. Elevated TSH -TSH 8 at previous hospital -T3: 0.75 -T4: < 1 VTE: SCDs Diet: May likely return to Heart Healthy Diet following CT-guided biopsy procedure Code: Full - Previously DNR but Revoked due to Metastatic Cancer Diagnosis. Dispo: Admitted to Telemetry for monitoring. Colonoscopy performed on 12/13/18 - biopsy results not indicative of primary malignancy and CT-guided biopsy of liver masses recommended. Will continue to stress the importance of Palliative Care sooner rather than later. Expected LOS > 2 days. Addendum - Attending - Attending Attestation Date/Time: 12/15/18 5216 I personally evaluated the patient and discussed the management with Dr. Rogers. I agree with the History, Examination, Assessment and Plan documented above with any addition or exceptions noted below. She remains tachypneic and tired appearing, similar to previous days during rounding. Her lungs remains clear. Await biopsy. Will d/c antibiotcs as I believe her SOB is from metastasis, effusion, etc. Need to have IS at bedside. D/c fluids. Monitor closely.
[2018-12-15 05:32] LABS: INR-International Normal Ratio 1.5; Prothrombin Time 18.3 SEC (12.0-14.7)
[2018-12-15] MEDS: Piperacillin/Tazobactam 2.25 GM in Sodium Chloride 0.9% 100 ML IVPB SCH (05:37)
[2018-12-15] MEDS: Levothyroxine Sodium 25 MCG TAB PO SCH (05:37)
[2018-12-15 05:53] LABS: ALT (SGPT) 139 U/L (8-55); AST (SGOT) 277 U/L (5-34); Albumin 2.1 g/dL (3.4-4.8); Alkaline Phosphatase 357 U/L (40-150); Anion Gap 14 mmol/L (10-20); BUN (Urea Nitrogen) 24 mg/dL (9.8-20.1); Bilirubin, Total 3.2 mg/dL (0.2-1.2); Calc. Creatinine Clearance 49 mL/min (70-130); Calcium 10.8 mg/dL (7.8-10.44); Carbon Dioxide 16 mmol/L (23-31); Chloride 114 mmol/L (98-107); Estimated GFR-MDRD 53; Globulin 2.8 g/dL (2.4-3.5); Glucose 103 mg/dL (83-110); Potassium 3.3 mmol/L (3.5-5.1); Protein, Total 4.9 g/dL (6.0-8.3); Sodium 141 mmol/L (136-145)
[2018-12-15 06:15] LABS: Band 12 % (5-11); Eosinophils 1 % (0-10); Hemoglobin 10.4 g/dL (12.0-16.0); Hypochromia SLIGHT = 6-15 cells (100X) (0-5/hpf); Lymphocytes 7 % (21-51); MDiff Complete? YES; Mean Corpuscular HGB CONC 30.7 g/dL (32.0-36.0); Mean Corpuscular Volume 84.8 fL (78.0-98.0); Mean Platelet Volume 7.2 fL (7.4-10.4); Monocytes 4 % (0-10); Myelocyte 5 % (0-0); Neutrophil 71 % (42-75); Nucleated RBC 1 % (0); Platelet Count 333 thou/uL (130-400); RBC Distribution Width 16.2 % (11.5-14.5); Target Cells SLIGHT = 2-5 cells (100X) (0-1/hpf); White Blood Cell (WBC) Count 37.9 thou/uL (4.8-10.8)
[2018-12-15] MEDS ORDERED: Potassium Chloride 40 MEQ in Sodium Chloride 0.9% 250 ML 250 ML IVPB SCH (07:00)
[2018-12-15] MEDS: Pantoprazole 40 MG VIAL IVP SCH (08:14)
[2018-12-15] MEDS: Dextrose 5%-Lactated Ringers 1,000 ML IV SCH (08:33)
[2018-12-15] MEDS ORDERED: Magnesium 2 GM/50 ML 2 GM in Premix Bag 1 BAG IVPB SCH (11:45)
[2018-12-15] MEDS ORDERED: Midazolam HCl 2 mg/2 ml Vial ONE (13:32)
[2018-12-15] MEDS ORDERED: Sodium Bicarbonate 2.5 MEQ/5 ML VIAL ONE (13:33)
[2018-12-15] MEDS ORDERED: Fentanyl 100 MCG/2 ML VIAL ONE (13:33)
--- NOTE | 2018-12-15 15:55 | CT ---
EXAM: CT-guided percutaneous biopsy of right hepatic lobe mass PROVIDED CLINICAL HISTORY: Multiple hepatic metastatic lesions. Biopsy was requested of a hepatic lesion. COMPARISON: CT abdomen on 12/06/2018. TECHNIQUE: The procedure including the risks and complications were explained to the patient, and informed conse nt was obtained. Patient was placed on the CT scan table in the supine position. Limited noncontrasted CT scan was obtained through the liver with grid localizer in place overlying the right hepatic lobe. An area was marked overlying a right hepatic lobe lesion. The area was meticulously prepped and draped in usual sterile fashion. The skin and subcutaneous tissues were infiltrated with buffered 1% lidocaine for local anesthesia. A small skin incision was made. A 17-gauge guide needle was advanced followed by axial noncontrasted CT images. Needle was positioned within a hypodense mass in the right hepatic lobe. A total of three 18-gauge core needle biopsy specimens were then obtained utilizing coaxial technique. Pathologist was available for evaluation of the specimens. However, provided specimens demonstrated a large amoun t of necrotic material. Final pathology result is currently pending. The inner stylette was replaced, and the needle was removed. Hemostasis was achieved with direct pres sure. Follow-up CT scan examination demonstrates only a tiny amount of fluid adjacent to biopsy site anterior to the liver. Patient's vital signs remained stable during the procedure as well as pos tprocedure. Patient tolerated the procedure well and without immediate complication. IMPRESSION: 1. Multiple hypodense metastatic lesions seen throughout each lobe of the liver. 2. Technically successful percutaneous CT-guided biopsy of a right hepatic lobe lesion. Initial evalu ation of each specimen by the pathologist yielded a large amount of necrotic material.. Final pathology result is pending.
--- NOTE | 2018-12-15 16:16 | RAD ---
XR Chest 1 View Portable History: Shortness of breath Comparison: Radiograph December 11, 2018 Findings: Enlarging bilateral effusions. Progressive pulmonary edema. Heart size is enlarged. No pneu mothorax. No acute osseous abnormality. Impression: Enlarging effusions and mild progressive pulmonary edema.
[2018-12-15] MEDS ORDERED: Furosemide 20 MG/2 ML VIAL SLOW IVP SCH (17:15)
--- NOTE | 2018-12-16 05:32 | PDOC.FM ---
- Subjective Subjective: Mrs. Sharma appears greatly improved since yesterday, with a decrease in pallor and improved respiratory effort. She denied any overnight events, as well as any chest pain or abdominal pain. Her family was not present at the time of evaluation. - Objective Vital Signs & Weight: Vital Signs (12 hours) Temp Pulse Resp BP Pulse Ox 12/16/18 03:19 98.0 F 87 18 139/67 94 L 12/15/18 20:00 98 12/15/18 19:43 98.0 F 89 14 159/70 H 93 L Weight Admit Weight 57.334 kg Weight 72.756 kg I&O: 12/14/18 12/15/18 12/16/18 06:59 06:59 06:59 Intake Total 1660 3470 740 Output Total 850 1275 950 Balance 810 2195 -210 Result Diagrams: 12/16/18 05:27 12/16/18 05:27 Phys Exam - Physical Examination Constitutional: NAD HEENT: PERRLA, moist MMs, oral pharynx no lesions Neck: supple, full ROM Poor inspiratory effort, mild rhonchi/wheezes Cardiovascular: RRR, no significant murmur, no rub Gastrointestinal: soft, non-tender Musculoskeletal: pulses present +1 pitting edema, bilaterally Neurological: non-focal, moves all 4 limbs Skin: no rash Dx/Plan (1) Acute respiratory failure with hypoxia Code(s): J96.01 - ACUTE RESPIRATORY FAILURE WITH HYPOXIA Status: Acute (2) GI bleed Code(s): K92.2 - GASTROINTESTINAL HEMORRHAGE, UNSPECIFIED Status: Acute Qualifiers: GI bleed type/associated pathology: melena Qualified Code(s): K92.1 - Melena (3) HLD (hyperlipidemia) Code(s): E78.5 - HYPERLIPIDEMIA, UNSPECIFIED Status: Acute (4) Hypercalcemia Code(s): E83.52 - HYPERCALCEMIA Status: Acute (5) Hypokalemia Code(s): E87.6 - HYPOKALEMIA Status: Acute (6) Tachycardia Code(s): R00.0 - TACHYCARDIA, UNSPECIFIED Status: Acute (7) Liver mass, right lobe Code(s): R16.0 - HEPATOMEGALY, NOT ELSEWHERE CLASSIFIED Status: Acute (8) Pulmonary nodules Status: Acute (9) Sigmoid thickening Code(s): K63.9 - DISEASE OF INTESTINE, UNSPECIFIED Status: Acute (10) Hypertension Code(s): I10 - ESSENTIAL (PRIMARY) HYPERTENSION Status: Chronic - Plan Plan: 1. GI Bleed 2/2 suspected Metastatic Cancer -Melena x3 weeks, currently asymptomatic, Hg/Hct relatively stable at 10.4/33.9 -No acute bleed suspected at this time -Hold VTE anticoagulation -Dr. Hall (GI) performed colonoscopy on 12/13/18, biopsy report indicated dysplasia -Dr. Lance (IR) performed CT-guided liver biopsy on 12/15/18, pathology report pending -Currently on liquid diet with Mighty Shakes -Protonix for GI prophylaxis 2. Acute Hypoxic Respiratory Failure -Increased O2 demands at [facility], on 3L NC with O2 in low 90s - denies dyspnea -CTA Chest: No evidence of PE -Venogram: No evidence of DVTs, bilaterally -CXR: Pleural Effusions with Pulmonary Edema -Lasix 20 mg administered on 12/15/18 -Multiple nodules noted within lung parenchema, likely metastatic cancer -Multiple masses within liver parenchyma, possible mass effect contributing to poor O2Sat -Will continue monitor respiratory status closely, consider additional dose of Lasix 20 mg 3. Liver Metastasis -LFTs elevated from baseline, trending down AST / ALT: 181/110 -Likely 2/2 to GI malignancy, pending CT-guided biopsy pathology report -Ammonia: 22 -PT: 18.3 -INR: 1.5 -APTT: 35.2 4. AMS -Occurring for past 1 week, significant decline in last 48 hours -ABG: Mild Metabolic Acidosis -Likely delerium vs dementia vs hepatic encephalopathy vs hypoxic encephalopathy -Patient appears moderately improved, but will continue to monitor 5. Leukocytosis -Vital signs currently stable -Started on Zosyn at [place], vanc added upon admission -UA: No evidence of Nitrites or WBCs -Urine Culture: No Growth at 48 Hours -Blood Culture: No Growth at 48 Hours -Procal: 5.26 -Possible leukomoid reaction 2/2 to metastatic cancer -All antibiotics DC'd on 12/15 6. Hypokalemia -K 3.0 on admission with subsequent increase to 3.8, currently 3.0 on 12/15/18 -M.7 -Phos: 3.3 -KCl 40 mEq IV ordered 7. MARCO ANTONIO on CKDII, resolved -C4: 1.48 on admission, 1.01 on 12/15/18 -Continue to monitor daily BMP 8. Hypercalcemia, resolved -Corrected Ca initially 12.0, likely 2/2 malignancy and hypovolemia 9. Elevated TSH -TSH 8 at previous hospital -T3: 0.75 -T4: < 1 10. HTN -BP of 163/77 on 12/16 -Restart home medication regimen of HCTZ 25 mg PO VTE: SCDs Diet: Full Liquid w/ Mighty Shakes, consider advancing to Heart Healthy Diet Code: Full - Previously DNR but Revoked due to Metastatic Cancer Diagnosis. Dispo: Admitted to Telemetry for monitoring. Colonoscopy performed on 12/13/18 - biopsy results not indicative of primary malignancy and CT-guided biopsy of liver masses currently pending pathology report. Consider additional dose of Lasix to help improve respiratory function. Evaluate for PT possibility and diet advancement. Will continue to stress the importance of Palliative Care. Expected LOS > 2 days. Addendum - Attending - Attending Attestation Date/Time: 12/16/18 1313 I personally evaluated the patient and discussed the management with Dr. Rogers. I agree with the History, Examination, Assessment and Plan documented above with any addition or exceptions noted below. I spent extensive time with family and explained lab abnormalities and current workup. For her Acute resp failure I believe she is volume overloaded and we will continue to diurese. For her leukocytosis likely 2/2 leukemoid reaction and non-infections. Monitor. PCT likely spurious, but will remain vigilant. For her elevated LFT's trend In light of her INR and no additional bleeding I think we should probably place her on LMWH, will d/w Dr. Torres. Await pathology.
[2018-12-16] MEDS: Levothyroxine Sodium 25 MCG TAB PO SCH (05:56)
[2018-12-16 06:00] LABS: Hemoglobin 10.7 g/dL (12.0-16.0); Mean Corpuscular HGB CONC 31.5 g/dL (32.0-36.0); Mean Corpuscular Hemoglobin 26.3 pg (27.0-31.0); Mean Corpuscular Volume 83.7 fL (78.0-98.0); Mean Platelet Volume 7.4 fL (7.4-10.4); Platelet Count 301 thou/uL (130-400); RBC Distribution Width 16.1 % (11.5-14.5); Red Blood Cell (RBC) Count 4.06 mill/uL (4.20-5.40); White Blood Cell (WBC) Count 41.5 thou/uL (4.8-10.8)
[2018-12-16 06:12] LABS: Band 2 % (5-11); Lymphocytes 8 % (21-51); MDiff Complete? YES; Monocytes 6 % (0-10); Neutrophil 84 % (42-75); Nucleated RBC 1 % (0); Platelet Morphology Comment Appears Adequate
[2018-12-16 06:24] LABS: ALT (SGPT) 110 U/L (8-55); AST (SGOT) 181 U/L (5-34); Albumin 2.1 g/dL (3.4-4.8); Alkaline Phosphatase 355 U/L (40-150); Anion Gap 15 mmol/L (10-20); BUN (Urea Nitrogen) 22 mg/dL (9.8-20.1); Bilirubin, Total 3.8 mg/dL (0.2-1.2); Calc. Creatinine Clearance 64 mL/min (70-130); Calcium 11.5 mg/dL (7.8-10.44); Carbon Dioxide 19 mmol/L (23-31); Chloride 115 mmol/L (98-107); Estimated GFR-MDRD 70; Globulin 2.9 g/dL (2.4-3.5); Glucose 73 mg/dL (83-110); Potassium 3.7 mmol/L (3.5-5.1); Sodium 145 mmol/L (136-145)
[2018-12-16] MEDS: Pantoprazole 40 MG VIAL IVP SCH (08:12)
[2018-12-16] MEDS: Hydrochlorothiazide 25 MG TAB PO SCH (09:50)
--- NOTE | 2018-12-16 13:11 | PQF ---
CLINICAL DOCUMENTATION IMPROVEMENT CLARIFICATION FORM: ICD-10 Updated PLEASE DO AN ADDENDUM TO THE PROGRESS NOTE WITH ANY DOCUMENTATION UPDATES OR ADDITIONS AND CARRY THROUGH TO DC SUMMARY. THANK YOU. Date: 12/16/18 ATTN: DR. SOTO Please exercise your independent, professional judgment in responding to the clarification form. Clinical indicators are provided on the bottom of this form for your review Please check appropriate box(s): [ ] Protein Calorie Malnutrition: [ X ] Mild [ ] Moderate [ ] Severe [ ] Other Malnutrition (please specify) __ [ ] Underweight without malnutrition [ ] Cachexia [ ] Other diagnosis [ ] Unable to determine In addition, please specify: Present on Admission (POA): [ X ] Yes [ ] No [ ] Unable to determine CLINICAL INDICATORS - SIGNS / SYMPTOMS / LABS DIETARY NOTE 12/14: "PATIENT DOES NOTE HAVE MUCH OF AN APPETITE, HAS NOT EATEN MUCH SINCE A WEEK NET SOLUTIONS ARCHITECT." "KCAL AND PROTEIN NEEDS NOT MET" "+1 PITTING EDEMA" OCCUPATIONAL THERAPY NOTE 12/12: "IMPAIRED ADLS, DECREASED FUNCTIONAL MOBILITY AND ACTIVITY TOLERANCE" ALBUMIN 12/14: 2.0 RISKS: INCREASED ORAL INTAKE DUE TO METASTATIC CANCER (DIETARY NOTE 12/14) ADVANCED AGE GI BLEED (FAMILY MEDICINE NOTE 12/16) GETTING CHOKED ON FOOD (PER SPEECH THERAPY ASSESSMENT 12/13) TREATMENT: DIETARY CONSULT OCCUPATIONAL THERAPY NUTRITIONAL SUPPLEMENTS (ORDERED 12/14) Moderate Malnutrition (in acute illness) Energy Intake: <75% of estimated energy requirement for > 7 days Weight Loss: 1-2%/1 week; 5%/ 1 month; 7.5%/3 months Other: mild body fat loss; mild muscle mass loss; mild fluid accumulation; Severe Malnutrition (in acute illness) Energy Intake: < 50% of estimated energy requirement for > 5 days Weight Loss: >1-2%/1 week; >5%/1 month; >7.5%/3 months Other: moderate body fat loss; moderate muscle mass loss; moderate- severe fluid accumulation; measurably reduced instrument repairer strength Moderate Malnutrition (in chronic illness) Energy Intake: <75% of estimated energy requirement for >1 month Weight Loss: 5%/1 month; 7.5%/3 months; 10%/6 months; 20%/1 year Other: mild body fat loss; mild muscle mass loss; mild fluid accumulation Severe Malnutrition (in chronic illness) Energy Intake: <75% of estimated energy requirement for >1 month Weight Loss: >5%/1 month; >7.5%/3 months; >10%/6 months; >20%/1 year Other: severe body fat loss; severe muscle mass loss; severe fluid accumulation ; measurably reduced instrument repairer strength (This form is maintained as a part of the permanent medical record) 2014 [employer]. All Rights Reserved LARA [email or web address] Office: [phone] [facility]
--- NOTE | 2018-12-16 22:14 | CON ---
DATE OF CONSULTATION: REASON FOR CONSULTATION: Liver lesions. HISTORY OF PRESENT ILLNESS: Ms. Sharma is an 83-year-old female with a history of hypertension, bronchitis, coronary artery disease, who over the last month has developed cough, weakness and shortness of breath. She has lost 18 pounds over the last 6 months. She has had difficulty with her bowel movements. She underwent an outpatient CT scan of her abdomen, chest and pelvis, which revealed thickening of the sigmoid colon. There was extensive necrotic lymphadenopathy. There were multiple hypodense masses replacing most of the hepatic parenchyma. She had some very small lung nodules in both lungs. She was referred to Dr. Hall for a colonoscopy. She was admitted to the [facility] for hydration prior to the procedure, but unfortunately became significantly weaker. She was transferred to this facility for possible sepsis and further workup. She did eventually undergo a colonoscopy by Dr. Torres. Unfortunately, she had poor preparation with retained stool in the colon. He did remove a polyp. This was nondiagnostic and a tubulovillous adenoma. She then underwent a CT-guided biopsy of her liver, path is currently pending. We were asked to see the patient prior to pathology results. The patient was seen at bedside with her son and grandson present. She is extremely weak, but does answer questions with one word sentences. Denies any pain at this time. PAST MEDICAL HISTORY: 1. Hypertension. 2. Hyperlipidemia. 3. Coronary artery disease. 4. Osteoarthritis. PAST SURGICAL HISTORY: Foot surgery. ALLERGIES: ADHESIVE AND COCONUT. HOME MEDICATIONS: 1. Aspirin. 2. Atorvastatin. 3. Diclofenac. 4. Esomeprazole. 5. Ezetimibe. 6. Flonase. 7. Folic acid. 8. Hydrochlorothiazide. 9. Nitroglycerin. 10. Tizanidine. 11. Cardizem CD. FAMILY HISTORY: No history of cancer. SOCIAL HISTORY: She is recently . Nonsmoker. No alcohol or illicit drug use. REVIEW OF SYSTEMS: Denies pain. Otherwise, unobtainable due to somnolence. PHYSICAL EXAMINATION: VITAL SIGNS: Temperature is 97.3, pulse is 80, respiratory rate 22, BP is 140/ 59. She is 93% on 3 L. GENERAL: This is a frail female, in no acute distress. HEENT: Normocephalic, atraumatic. NECK: Supple. CV: Regular rate and rhythm. LUNGS: Clear anterior. ABDOMEN: Distended, slightly tender. She does have a palpable liver. EXTREMITIES: No clubbing, cyanosis, or edema. SKIN: No rash. HEMATOLOGICAL: No petechiae or purpura. NEUROLOGICAL: Nonfocal. PERTINENT LABORATORY DATA AND X-RAYS: Current WBCs 41.5, hemoglobin 10.7, hematocrit 34.0, platelet count 301,000, 84% neutrophils, 2% bands, 8% lymphs. PT is 18.3, INR is 1.5. Sodium 145, potassium 3.7, chloride 115, CO2 is 19, BUN is 22, creatinine 0.75, calcium 11.5, bilirubin is 3.8, AST is 181, ALT is 110, alkaline phosphatase is 355. Serum total protein is 5, albumin 2.1, globulin 2.9. BNP is 646.2. ASSESSMENT: 1. Metastatic disease with liver lesions, path pending. 2. Hypercalcemia likely secondary to malignancy. DISCUSSION: The patient metastatic disease to the liver and lung, possibly primary colon. Her liver is quite large and her LFTs continue to increase over the last several days. She has had intermittent hypercalcemia since admission to [facility]. We would recommend zoledronic acid and IV hydration. We discussed with the family that given her current performance status, she is a poor candidate for any type of chemotherapy; however, should she begin to eat and get some strength back over this admission would consider chemo. I do think that she should be a DNR. Palliative Care has already seen the patient. We will return once her final path has returned to give final diagnosis and recommendations. Thank you for the consult. Job ID: [id number] [facility]
[2018-12-17 04:27] LABS: Hemoglobin 10.9 g/dL (12.0-16.0); Mean Corpuscular HGB CONC 31.1 g/dL (32.0-36.0); Mean Corpuscular Hemoglobin 26.1 pg (27.0-31.0); Mean Corpuscular Volume 83.8 fL (78.0-98.0); Mean Platelet Volume 7.7 fL (7.4-10.4); Platelet Count 329 thou/uL (130-400); RBC Distribution Width 16.5 % (11.5-14.5); Red Blood Cell (RBC) Count 4.16 mill/uL (4.20-5.40); White Blood Cell (WBC) Count 41.1 thou/uL (4.8-10.8)
[2018-12-17 04:47] LABS: ALT (SGPT) 104 U/L (8-55); AST (SGOT) 180 U/L (5-34); Alkaline Phosphatase 398 U/L (40-150); Anion Gap 16 mmol/L (10-20); BUN (Urea Nitrogen) 30 mg/dL (9.8-20.1); Band 1 % (5-11); Bilirubin, Total 4.2 mg/dL (0.2-1.2); Calc. Creatinine Clearance 62 mL/min (70-130); Carbon Dioxide 18 mmol/L (23-31); Chloride 114 mmol/L (98-107); Estimated GFR-MDRD 67; Globulin 3.2 g/dL (2.4-3.5); Glucose 115 mg/dL (83-110); Hypochromia SLIGHT = 6-15 cells (100X) (0-5/hpf); Lymphocytes 4 % (21-51); MDiff Complete? YES; Monocytes 2 % (0-10); Neutrophil 93 % (42-75); Nucleated RBC 2 % (0); Platelet Morphology Comment Appears Adequate; Potassium 3.4 mmol/L (3.5-5.1); Protein, Total 5.2 g/dL (6.0-8.3); Sodium 145 mmol/L (136-145)
[2018-12-17 04:51] LABS: Calcium 12.6 mg/dL (7.8-10.44)
--- NOTE | 2018-12-17 05:39 | PDOC.FM ---
- Subjective Subjective: Mrs. Sharma continues to appear fatigued and demonstrate difficulty breathing. Although she does not endorse dyspnea, she is only able to answer questions in 1 or 2 word sentences. She denies being in pain, and denied any overnight events. - Objective Vital Signs & Weight: Vital Signs (12 hours) Temp Pulse Resp BP Pulse Ox 12/17/18 04:00 97.6 F 96 16 148/71 H 94 L 12/16/18 20:00 94 L 12/16/18 19:37 98.3 F 89 14 152/75 H 92 L Weight Admit Weight 57.334 kg Weight 72.756 kg I&O: 12/15/18 12/16/18 12/17/18 06:59 06:59 06:59 Intake Total 3470 890 540 Output Total 1275 1800 425 Balance 2195 -910 115 Result Diagrams: 12/17/18 03:53 12/17/18 03:53 Phys Exam - Physical Examination Notable pallor, with shallow breathing HEENT: PERRLA, sclera anicteric, oral pharynx no lesions Neck: supple, full ROM Respiratory: no wheezing, no rales, no rhonchi, clear to auscultation bilateral Shallow breathing and poor air movement Cardiovascular: RRR, no significant murmur, no rub Gastrointestinal: soft, non-tender, no distention Musculoskeletal: pulses present +2 pitting edema in LEs, bilaterally Neurological: non-focal, moves all 4 limbs Skin: no rash Dx/Plan (1) Acute respiratory failure with hypoxia Code(s): J96.01 - ACUTE RESPIRATORY FAILURE WITH HYPOXIA Status: Acute (2) GI bleed Code(s): K92.2 - GASTROINTESTINAL HEMORRHAGE, UNSPECIFIED Status: Acute Qualifiers: GI bleed type/associated pathology: melena Qualified Code(s): K92.1 - Melena (3) HLD (hyperlipidemia) Code(s): E78.5 - HYPERLIPIDEMIA, UNSPECIFIED Status: Acute (4) Hypercalcemia Code(s): E83.52 - HYPERCALCEMIA Status: Acute (5) Hypokalemia Code(s): E87.6 - HYPOKALEMIA Status: Acute (6) Tachycardia Code(s): R00.0 - TACHYCARDIA, UNSPECIFIED Status: Acute (7) Liver mass, right lobe Code(s): R16.0 - HEPATOMEGALY, NOT ELSEWHERE CLASSIFIED Status: Acute (8) Pulmonary nodules Status: Acute (9) Sigmoid thickening Code(s): K63.9 - DISEASE OF INTESTINE, UNSPECIFIED Status: Acute (10) Hypertension Code(s): I10 - ESSENTIAL (PRIMARY) HYPERTENSION Status: Chronic - Plan Plan: 1. GI Bleed 2/2 suspected Metastatic Cancer -Melena x3 weeks, currently asymptomatic, Hg/Hct relatively stable at 10.4/33.9 -No acute bleed suspected at this time -Hold VTE anticoagulation -Dr. Hall (GI) performed colonoscopy on 12/13/18, biopsy report indicated dysplasia -Dr. Lance (IR) performed CT-guided liver biopsy on 12/15/18, biopsy report indicated poorly differentiated carcinoma -Currently on Soft Mechanical Diet with Mighty Shakes -Protonix for GI prophylaxis 2. Acute Hypoxic Respiratory Failure -Increased O2 demands at [facility], on 3L NC with O2 in low 90s - denies dyspnea -CTA Chest: No evidence of PE -Venogram: No evidence of DVTs, bilaterally -CXR: Pleural Effusions with Pulmonary Edema -Lasix 20 mg administered on 12/15/18 -Multiple nodules noted within lung parenchema, likely metastatic cancer -Multiple masses within liver parenchyma, possible mass effect contributing to poor O2Sat -Will continue monitor respiratory status closely, consider additional dose of Lasix 20 mg 3. Liver Metastasis -See #1 -AST / ALT: 180/104 -Ammonia: 22 -PT: 18.3 -INR: 1.5 -APTT: 35.2 -CEA: 275 (H) -Will re-engage GI in order to determine if additional tissue sample is feasible 4. AMS, improved -Occurring for past 1 week, significant decline in last 48 hours -ABG: Mild Metabolic Acidosis -Likely delerium vs dementia vs hepatic encephalopathy vs hypoxic encephalopathy -Patient appears moderately improved, but will continue to monitor 5. Leukocytosis -Vital signs currently stable -Started on Zosyn at [place], vanc added upon admission -UA: No evidence of Nitrites or WBCs -Urine Culture: No Growth at 48 Hours -Blood Culture: No Growth at 48 Hours -Procal: 5.26 -Possible leukomoid reaction 2/2 to metastatic cancer -All antibiotics DC'd on 12/15 6. Hypokalemia -K 3.0 on admission with subsequent increase to 3.8, currently 3.4 on 12/17/18 -M.7 -Phos: 3.3 -KCl 40 mEq IV ordered 7. MARCO ANTONIO on CKDII, resolved -C4: 1.48 on admission, 0.82 on 12/17/18 -Continue to monitor daily BMP 8. Hypercalcemia -Corrected Ca: 12.6 -Zoledronic Acid ordered 9. Elevated TSH -TSH 8 at previous hospital -T3: 0.75 -T4: < 1 10. HTN -BP of 148/71 on 12/17 -Restart home medication regimen of HCTZ 25 mg PO, consider increasing dosage if LE edema persists VTE: SCDs & Lovenox Diet: Soft Mechanical with Mighty Shakes Code: Full - Previously DNR but Revoked due to Metastatic Cancer Diagnosis. Dispo: Admitted to Telemetry for monitoring. Colonoscopy performed on 12/13/18 - biopsy results not indicative of primary malignancy and CT-guided biopsy of liver masses yielded diagnosis only of "carcinoma likely of GI origin". Will coordinate discrepancy with GI and/or Oncology. Will order additional dose of Lasix to reduce LE edemand and help improve respiratory function, as well as Zoledronic Acid to correct hypercalcemia. Will continue to stress the importance of Palliative Care. Expected LOS > 2 days. Addendum - Attending - Attending Attestation Date/Time: 12/17/18 1328 I personally evaluated the patient and discussed the management with Dr. Rogers at 0705. I agree with the History, Examination, Assessment and Plan documented above with any addition or exceptions noted below. 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 Continue to discuss treatment goal with family Hypercalcemia- no IVF as fluid overload noted- will do zoledronic acid. Palliative care assistance appreciated.
--- NOTE | 2018-12-17 05:50 | PDOC.FM ---
- Objective Vital Signs & Weight: Vital Signs (12 hours) Temp Pulse Resp BP Pulse Ox 12/17/18 04:00 97.6 F 96 16 148/71 H 94 L 12/16/18 20:00 94 L 12/16/18 19:37 98.3 F 89 14 152/75 H 92 L Weight Admit Weight 57.334 kg Weight 72.756 kg I&O: 12/15/18 12/16/18 12/17/18 06:59 06:59 06:59 Intake Total 3470 890 540 Output Total 1275 1800 425 Balance 2195 -910 115 Result Diagrams: 12/17/18 03:53 12/17/18 03:53 Dx/Plan (1) Acute respiratory failure with hypoxia Code(s): J96.01 - ACUTE RESPIRATORY FAILURE WITH HYPOXIA Status: Acute (2) GI bleed Code(s): K92.2 - GASTROINTESTINAL HEMORRHAGE, UNSPECIFIED Status: Acute Qualifiers: GI bleed type/associated pathology: melena Qualified Code(s): K92.1 - Melena (3) HLD (hyperlipidemia) Code(s): E78.5 - HYPERLIPIDEMIA, UNSPECIFIED Status: Acute (4) Hypercalcemia Code(s): E83.52 - HYPERCALCEMIA Status: Acute (5) Hypokalemia Code(s): E87.6 - HYPOKALEMIA Status: Acute (6) Tachycardia Code(s): R00.0 - TACHYCARDIA, UNSPECIFIED Status: Acute (7) Liver mass, right lobe Code(s): R16.0 - HEPATOMEGALY, NOT ELSEWHERE CLASSIFIED Status: Acute (8) Pulmonary nodules Status: Acute (9) Sigmoid thickening Code(s): K63.9 - DISEASE OF INTESTINE, UNSPECIFIED Status: Acute (10) Hypertension Code(s): I10 - ESSENTIAL (PRIMARY) HYPERTENSION Status: Chronic - Plan Plan: 1. Hypernatremia -Na 153 on 12/16 -D5W @ 70 ml/hr. -Initial Free Water Deficit estimated to be 6-7L, currently ~4L -Suspect poor PO intake 2/2 to TBI and Kluver Bucy Syndrome -BMP checks Q12H 2. SIRS, Elevated WBCs and HR -Rule out Sepsis/Septic Shock -WBC: 12.3 > 10.4 -Blood Cultures: Pending -Urine Cultures: Pending 3. Thrombocytopenia -Continue to monitor -Previous lab results from 09/14 did not show a deficiency -May be side effect from psychiatric medications 4. MARCO ANTONIO -Cr: 1.65 > 1.07 -Fluid resuscitation ongoing 5. DM2 -A1C: 4.8 -Consider Mild Sliding Scale Insulin and restarting home medication regimen of Metformin following MARCO ANTONIO resolution 6. BRBPR -Possibly due to internal / external hemorrhoids -Colonoscopy scheduled for 12/17/18 Code: DNAR VTE PPx: SCDs GI PPx: None Fluids: D5W at 70 ml/hr Dispo: Patient currently admitted to Telemetry Floor. Fluid resuscitation ongoing at acceptable rate. Blood and urine cultures pending. Plan for colonoscopy this AM. Expected LOS > 48H.
[2018-12-17] MEDS: Levothyroxine Sodium 25 MCG TAB PO SCH (05:57)
[2018-12-17] MEDS: Hydrochlorothiazide 25 MG TAB PO SCH (09:42)
[2018-12-17] MEDS: Enoxaparin Sodium 40 MG/0.4 ML SYRINGE SC SCH (09:42)
[2018-12-17] MEDS: Pantoprazole 40 MG VIAL IVP SCH (09:42)
[2018-12-17] MEDS ORDERED: Furosemide 20 MG/2 ML VIAL SLOW IVP SCH (11:00)
[2018-12-17] MEDS ORDERED: Potassium Chloride 20 MEQ TAB PO SCH (11:00)
[2018-12-17] MEDS ORDERED: Zoledronic Acid 4 MG in Sodium Chloride 0.9% 100 ML IVPB SCH (11:30)
[2018-12-17 16:35] LABS: ALT (SGPT) 96 U/L (8-55); AST (SGOT) 173 U/L (5-34); Alkaline Phosphatase 384 U/L (40-150); Anion Gap 16 mmol/L (10-20); BUN (Urea Nitrogen) 34 mg/dL (9.8-20.1); Bilirubin, Total 4.2 mg/dL (0.2-1.2); Calc. Creatinine Clearance 50 mL/min (70-130); Carbon Dioxide 19 mmol/L (23-31); Chloride 114 mmol/L (98-107); Estimated GFR-MDRD 53; Glucose 138 mg/dL (83-110); Potassium 3.7 mmol/L (3.5-5.1); Sodium 145 mmol/L (136-145)
[2018-12-17 16:39] LABS: Calcium 12.6 mg/dL (7.8-10.44)
[2018-12-18 04:49] LABS: ALT (SGPT) 97 U/L (8-55); AST (SGOT) 195 U/L (5-34); Alkaline Phosphatase 393 U/L (40-150); Anion Gap 15 mmol/L (10-20); BUN (Urea Nitrogen) 39 mg/dL (9.8-20.1); Bilirubin, Total 4.6 mg/dL (0.2-1.2); Calc. Creatinine Clearance 53 mL/min (70-130); Carbon Dioxide 21 mmol/L (23-31); Chloride 113 mmol/L (98-107); Estimated GFR-MDRD 57; Glucose 108 mg/dL (83-110); Potassium 3.7 mmol/L (3.5-5.1); Sodium 145 mmol/L (136-145)
[2018-12-18 04:51] LABS: Band 2 % (5-11); Hemoglobin 10.5 g/dL (12.0-16.0); Hypochromia SLIGHT = 6-15 cells (100X) (0-5/hpf); Lymphocytes 9 % (21-51); MDiff Complete? YES; Mean Corpuscular HGB CONC 31.4 g/dL (32.0-36.0); Mean Corpuscular Hemoglobin 26.1 pg (27.0-31.0); Mean Platelet Volume 7.9 fL (7.4-10.4); Metamyelocyte 2 % (0-0); Monocytes 10 % (0-10); Myelocyte 1 % (0-0); Neutrophil 76 % (42-75); Nucleated RBC 1 % (0); Platelet Count 305 thou/uL (130-400); Platelet Morphology Comment Appears Adequate; Polychromasia SLIGHT = 2-3 cells (100X) (0-2/hpf); RBC Distribution Width 16.4 % (11.5-14.5); Red Blood Cell (RBC) Count 4.03 mill/uL (4.20-5.40); Target Cells SLIGHT = 2-5 cells (100X) (0-1/hpf); White Blood Cell (WBC) Count 37.2 thou/uL (4.8-10.8)
[2018-12-18 04:52] LABS: Calcium 12.9 mg/dL (7.8-10.44)
--- NOTE | 2018-12-18 05:20 | PDOC.FM ---
- Subjective Subjective: Mrs. Sharma appears to be resting comfortably at the time of evaluation and seems alert, but is only able to speak in 1 or 2 words sentences. Her son was present at the time of the evaluation. - Objective Vital Signs & Weight: Vital Signs (12 hours) Temp Pulse Resp BP Pulse Ox 12/18/18 04:00 98.1 F 77 16 141/68 H 98 12/17/18 20:00 93 L 12/17/18 19:59 97.9 F 76 18 150/64 H 93 L Weight Admit Weight 57.334 kg Weight 71.804 kg I&O: 12/16/18 12/17/18 12/18/18 06:59 06:59 06:59 Intake Total 890 1140 550 Output Total 1800 725 800 Balance -910 415 -250 Result Diagrams: 12/19/18 05:13 12/19/18 05:13 Phys Exam - Physical Examination Constitutional: NAD Appears extremely fatigued HEENT: PERRLA, moist MMs, oral pharynx no lesions Scleral icterus Neck: no nodes, no JVD, supple, full ROM Respiratory: no wheezing, no rales, no rhonchi, clear to auscultation bilateral Poor air movement Cardiovascular: RRR, no significant murmur, no rub Gastrointestinal: soft, non-tender Protuberant abdomen with minimal bowel sounds Musculoskeletal: pulses present +2 pitting edema in LEs Neurological: non-focal, moves all 4 limbs Lymphatic: no nodes Skin: no rash, normal turgor Dx/Plan (1) Acute respiratory failure with hypoxia Code(s): J96.01 - ACUTE RESPIRATORY FAILURE WITH HYPOXIA Status: Acute (2) GI bleed Code(s): K92.2 - GASTROINTESTINAL HEMORRHAGE, UNSPECIFIED Status: Acute Qualifiers: GI bleed type/associated pathology: melena Qualified Code(s): K92.1 - Melena (3) HLD (hyperlipidemia) Code(s): E78.5 - HYPERLIPIDEMIA, UNSPECIFIED Status: Acute (4) Hypercalcemia Code(s): E83.52 - HYPERCALCEMIA Status: Acute (5) Hypokalemia Code(s): E87.6 - HYPOKALEMIA Status: Acute (6) Tachycardia Code(s): R00.0 - TACHYCARDIA, UNSPECIFIED Status: Acute (7) Liver mass, right lobe Code(s): R16.0 - HEPATOMEGALY, NOT ELSEWHERE CLASSIFIED Status: Acute (8) Pulmonary nodules Status: Acute (9) Sigmoid thickening Code(s): K63.9 - DISEASE OF INTESTINE, UNSPECIFIED Status: Acute (10) Hypertension Code(s): I10 - ESSENTIAL (PRIMARY) HYPERTENSION Status: Chronic - Plan Plan: 1. GI Bleed 2/2 suspected Metastatic Cancer -Melena x3 weeks, currently asymptomatic -No acute bleed suspected at this time -Dr. Hall (GI) performed colonoscopy on 12/13/18, biopsy report indicated focal dysplasia -Dr. Lnace (IR) performed CT-guided liver biopsy on 12/15/18, biopsy report indicated poorly differentiated carcinoma -Currently on Soft Mechanical Diet with Mighty Shakes -Protonix for GI prophylaxis 2. Acute Hypoxic Respiratory Failure -Increased O2 demands at [facility], on 3L NC with O2 in low 90s - denies dyspnea -CTA Chest: No evidence of PE -Venogram: No evidence of DVTs, bilaterally -CXR: Pleural Effusions with Pulmonary Edema -Lasix 20 mg administered on 12/15/18 -Multiple nodules noted within lung parenchema, likely metastatic cancer -Multiple masses within liver parenchyma, possible mass effect contributing to poor O2Sat -Will continue monitor respiratory status closely, consider additional doses of Lasix 20 mg 3. Liver Metastasis -See #1 -AST / ALT: 195/97 -Ammonia: 22 -PT: 18.3 -INR: 1.5 -APTT: 35.2 -CEA: 275 (H) 4. AMS, improved -Occurring for past 1 week, significant decline in last 48 hours -ABG: Mild Metabolic Acidosis -Likely delerium vs dementia vs hepatic encephalopathy vs hypoxic encephalopathy -Patient appears moderately improved, but will continue to monitor 5. Leukocytosis -Vital signs currently stable -Started on Zosyn at [place], vanc added upon admission -UA: No evidence of Nitrites or WBCs -Urine Culture: No Growth at 48 Hours -Blood Culture: No Growth at 48 Hours -Procal: 5.26 -Possible leukomoid reaction 2/2 to metastatic cancer -All antibiotics DC'd on 12/15 6. Hypokalemia, resolved -K 3.0 on admission with subsequent increase to 3.8, currently 3.7 on 12/18 -M.7 -Phos: 3.3 7. MARCO ANTONIO on CKDII, resolved -Cr: 1.48 on admission, 0.94 on 12/18 8. Hypercalcemia -Corrected Ca: 14.5 9. Elevated TSH -TSH 8 at previous hospital -T3: 0.75 -T4: < 1 10. HTN -BP of 148/71 on 12/17 VTE: SCDs & Lovenox Diet: Soft Mechanical with Mighty Shakes Code: DNAR Dispo: A lengthy conversation was had both with the patient and the patient's son this morning concerning her current treatment plan and the need for palliative measures. The patient states that she is "ready to go home if the doctor thinks so" and seemed receptive to palliative measures, although her comprehension of the situation is difficult to assess fully. Her son, who is her MPOA, was open to discussing the need for palliative measures and hospice care at length, and agreed to removing her Full Code status in favor of DNAR. Great efforts were made to articulate the likelihood of the patient having a jeff decline and how her outlook following a code was almost certain to be dismal. The son agreed with the plan to consult Hospice today but wants the rest of the family to discuss the plan first. Palliative Care has been consulted and hopefully Hospice can organize a consult this afternoon. Expected LOS < 48H Addendum - Attending - Attending Attestation Late entry for Date/Time: 12/18/18 0710 am. I personally evaluated the patient and discussed the management with Dr. Rogers. I agree with the History, Examination, Assessment and Plan documented above with any addition or exceptions noted below. Continue family discussions about code status and goal of treatment.
[2018-12-18] MEDS: Levothyroxine Sodium 25 MCG TAB PO SCH (06:13)
[2018-12-18] MEDS: Hydrochlorothiazide 25 MG TAB PO SCH (09:09)
[2018-12-18] MEDS: Enoxaparin Sodium 40 MG/0.4 ML SYRINGE SC SCH (09:10)
[2018-12-18] MEDS: Pantoprazole 40 MG VIAL IVP SCH (09:10)
[2018-12-18] MEDS: Sodium Chloride 0.9% (PF) 10 ML VIAL FS PRN (09:10)
[2018-12-19 05:56] LABS: ALT (SGPT) 93 U/L (8-55); AST (SGOT) 211 U/L (5-34); Albumin 2.1 g/dL (3.4-4.8); Alkaline Phosphatase 420 U/L (40-150); Anion Gap 14 mmol/L (10-20); BUN (Urea Nitrogen) 43 mg/dL (9.8-20.1); Bilirubin, Total 5.5 mg/dL (0.2-1.2); Calc. Creatinine Clearance 59 mL/min (70-130); Carbon Dioxide 21 mmol/L (23-31); Chloride 111 mmol/L (98-107); Estimated GFR-MDRD 64; Globulin 2.9 g/dL (2.4-3.5); Glucose 97 mg/dL (83-110); Potassium 3.4 mmol/L (3.5-5.1); Sodium 143 mmol/L (136-145)
[2018-12-19 05:59] LABS: Calcium 12.1 mg/dL (7.8-10.44)
[2018-12-19 06:02] LABS: Hemoglobin 10.5 g/dL (12.0-16.0); Hypochromia SLIGHT = 6-15 cells (100X) (0-5/hpf); Lymphocytes 2 % (21-51); MDiff Complete? YES; Mean Corpuscular HGB CONC 31.3 g/dL (32.0-36.0); Mean Corpuscular Hemoglobin 25.8 pg (27.0-31.0); Mean Corpuscular Volume 82.6 fL (78.0-98.0); Mean Platelet Volume 7.8 fL (7.4-10.4); Monocytes 3 % (0-10); Neutrophil 95 % (42-75); Platelet Count 297 thou/uL (130-400); Platelet Morphology Comment Appears Adequate; RBC Distribution Width 16.8 % (11.5-14.5); Red Blood Cell (RBC) Count 4.06 mill/uL (4.20-5.40); White Blood Cell (WBC) Count 36.3 thou/uL (4.8-10.8)
[2018-12-19] MEDS: Levothyroxine Sodium 25 MCG TAB PO SCH (06:17)
--- NOTE | 2018-12-19 08:10 | PDOC.FM ---
- Subjective Subjective: NAEO. Patient reports mild SOB on exam making it difficult for her to speak more than a few words at a time but denies any pain, N/V or diarrhea. Endorses constipation and TPP in B/L LEs. Reports decreased appetite as well. - Objective MAR Reviewed: Yes Vital Signs & Weight: Vital Signs (12 hours) Temp Pulse Resp BP Pulse Ox 12/19/18 07:51 97.5 F L 77 20 139/65 96 12/19/18 04:00 97.5 F L 72 16 124/58 L 95 12/19/18 00:00 98.2 F 62 16 120/58 L 94 L Weight Admit Weight 57.334 kg Weight 71.804 kg I&O: 12/18/18 12/19/18 12/20/18 06:59 06:59 06:59 Intake Total 850 1440 Output Total 1250 1375 Balance -400 65 Result Diagrams: 12/20/18 04:55 12/20/18 04:55 Phys Exam - Physical Examination Constitutional: NAD HEENT: moist MMs, sclera anicteric Neck: supple, full ROM Respiratory: no wheezing, no rales, no rhonchi decreased respiratory effort with mild tachypnea Cardiovascular: RRR, no significant murmur Gastrointestinal: soft, non-tender, no distention, positive bowel sounds 4+ pitting edema in B/L LEs up to knees Neurological: moves all 4 limbs Psychiatric: normal affect, A&O x 3 Skin: no rash, normal turgor Dx/Plan (1) Acute respiratory failure with hypoxia Code(s): J96.01 - ACUTE RESPIRATORY FAILURE WITH HYPOXIA Status: Acute (2) GI bleed Code(s): K92.2 - GASTROINTESTINAL HEMORRHAGE, UNSPECIFIED Status: Acute Qualifiers: GI bleed type/associated pathology: melena Qualified Code(s): K92.1 - Melena (3) HLD (hyperlipidemia) Code(s): E78.5 - HYPERLIPIDEMIA, UNSPECIFIED Status: Acute (4) Hypercalcemia Code(s): E83.52 - HYPERCALCEMIA Status: Acute (5) Hypokalemia Code(s): E87.6 - HYPOKALEMIA Status: Acute (6) Tachycardia Code(s): R00.0 - TACHYCARDIA, UNSPECIFIED Status: Acute (7) Transaminitis Code(s): R74.0 - NONSPEC ELEV OF LEVELS OF TRANSAMNS & LACTIC ACID DEHYDRGNSE Status: Acute (8) Liver mass, right lobe Code(s): R16.0 - HEPATOMEGALY, NOT ELSEWHERE CLASSIFIED Status: Acute (9) Hypertension Code(s): I10 - ESSENTIAL (PRIMARY) HYPERTENSION Status: Chronic - Plan Plan: Blood loss anemia 2/2 Metastatic Colon Cancer -Melena x3 weeks, currently asymptomatic -No acute bleed suspected at this time -Dr. Hall (GI) performed colonoscopy on 12/13/18, biopsy report indicated focal dysplasia -Dr. Lance (IR) performed CT-guided liver biopsy on 12/15/18, biopsy report indicated poorly differentiated carcinoma -Currently on Soft Mechanical Diet with Mighty Shakes -Protonix for GI prophylaxis -Hospice & PC on board for likely d/c with home hospice given poor prognosis Acute Hypoxic Respiratory Failure -Increased O2 demands overnight. Now on 4L NC with O2 in low 90s from 3L. Does report some SOB & had significant edema in B/L LEs on exam. Will get an UTD CXR as patient. -Multiple nodules noted within lung parenchema, likely metastatic cancer -CXR: Pleural Effusions with Pulmonary Edema on 12/15 & received Lasix 20 mg. Will consider a repeat dose today pending CXR read. -Will continue monitor respiratory status closely. Leukocytosis, improving -WBC down to 36 this AM -Vital signs currently stable with exception of O2 requirements -Most likely a leukomoid reaction 2/2 to metastatic cancer -Will continue to monitor Hypokalemia -K 3.4 this AM. Will continue to monitor & replace PRN. Hypercalcemia, improving -Corrected Ca 12.2 for low albumin this AM. Will continue to monitor Elevated TSH -TSH 8 at previous hospital -T3: 0.75 -T4: < 1 - Continue synthroid 25mcg QD HTN -BPs WNLs overnight. Will continue to monitor MARCO ANTONIO on CKDII, resolved -Cr 0.85 this AM w/ eGFR of 64, within patient's baseline limits. Will continue to monitor. AMS, improved -Likely delirium vs dementia vs hepatic encephalopathy vs hypoxic encephalopathy vs metabolic from hyperCa -Patient appears improved, will continue to monitor Dispo: Will continue to keep patient comfortable pending hospice evaluation later today. Anticipate d/c home with hospice before end of week. VTE: SCDs & Lovenox Diet: Soft Mechanical with Mighty Shakes Code: DNAR Addendum - Attending - Attending Attestation Date/Time: 12/19/18 1101 I personally evaluated the patient and discussed the management with Dr. Grace I agree with the History, Examination, Assessment and Plan documented above with any addition or exceptions noted below. 83 yo female presented for evaluation of GI blood loss admitted for metastatic disease. HD#8 Patient reports no pain. No evidence of emanuel GI bleeding. No appetite. Not eating. No energy. +SOB. VS, labs, imaging reviewed Agree with PE as documented by resident 1. Metastatic disease: Likely GI origin. Lesions to liver and lungs. Onc following. Patient unable to tolerate treatment. Family has decided to speak with hospice/palliative. 2. Hypercalcemia: 2/2 malignancy. Asymptomatic. Will continue gentle IVFs as needed. Keep less than 13. Stop HCTZ. Add Lasix. Zoledronic acid if needed. 3. HTN: Now with hypotension. Hold medications. Will continue lasix as tolerated. 4. HLD: Hold statin Switch IV meds to PO. Hold IVFs. Hospice consult this afternoon. Sindy
[2018-12-19] MEDS: Hydrochlorothiazide 25 MG TAB PO SCH (08:58)
[2018-12-19] MEDS: Potassium Chloride 20 MEQ TAB PO SCH (08:58)
[2018-12-19] MEDS: Polyethylene Glycol 3350 17 GM Packet PO SCH (08:59)
[2018-12-19] MEDS: Pantoprazole 40 MG VIAL IVP SCH (08:59)
[2018-12-19] MEDS: Enoxaparin Sodium 40 MG/0.4 ML SYRINGE SC SCH (08:59)
[2018-12-19 09:05] LABS: Magnesium 2.1 mg/dL (1.6-2.6); Phosphorus 2.3 mg/dL (2.3-4.7)
[2018-12-19] MEDS ORDERED: Senokot 8.6 MG TAB PO PRN (09:15)
--- NOTE | 2018-12-19 09:48 | RAD ---
EXAM: Single view of the chest HISTORY: Increasing oxygen requirement COMPARISON: None FINDINGS: Single view of the chest shows a normal sized cardiomediastinal silhouette. There is no suzi dence of consolidation, mass, or pleural effusion. The bones are unremarkable. IMPRESSION: No evidence of acute cardiopulmonary disease
[2018-12-19] MEDS ORDERED: Furosemide 40 MG TAB PO SCH (12:30)
[2018-12-19] MEDS ORDERED: Lactated Ringer's 500 ML IV SCH (12:30)
[2018-12-19 15:11] VITALS: BMI 28.0
[2018-12-19] MEDS: Lactated Ringer's 1,000 ML IV SCH ×2 (15:20→18:13)
[2018-12-20 05:33] LABS: Band 12 % (5-11); Hemoglobin 10.2 g/dL (12.0-16.0); Lymphocytes 8 % (21-51); MDiff Complete? YES; Mean Corpuscular HGB CONC 31.9 g/dL (32.0-36.0); Mean Corpuscular Hemoglobin 26.3 pg (27.0-31.0); Mean Corpuscular Volume 82.6 fL (78.0-98.0); Mean Platelet Volume 7.9 fL (7.4-10.4); Metamyelocyte 1 % (0-0); Monocytes 5 % (0-10); Neutrophil 74 % (42-75); Nucleated RBC 3 % (0); Platelet Count 308 thou/uL (130-400); Platelet Morphology Comment Appears Adequate; RBC Distribution Width 17.3 % (11.5-14.5); Red Blood Cell (RBC) Count 3.88 mill/uL (4.20-5.40); White Blood Cell (WBC) Count 36.6 thou/uL (4.8-10.8)
[2018-12-20 05:37] LABS: ALT (SGPT) 98 U/L (8-55); AST (SGOT) 267 U/L (5-34); Alkaline Phosphatase 511 U/L (40-150); Anion Gap 16 mmol/L (10-20); BUN (Urea Nitrogen) 47 mg/dL (9.8-20.1); Bilirubin, Total 6.8 mg/dL (0.2-1.2); Calc. Creatinine Clearance 51 mL/min (70-130); Calcium 11.6 mg/dL (7.8-10.44); Carbon Dioxide 21 mmol/L (23-31); Chloride 108 mmol/L (98-107); Estimated GFR-MDRD 54; Globulin 3.1 g/dL (2.4-3.5); Glucose 84 mg/dL (83-110); Magnesium 2.1 mg/dL (1.6-2.6); Potassium 3.8 mmol/L (3.5-5.1); Protein, Total 5.1 g/dL (6.0-8.3); Sodium 141 mmol/L (136-145)
[2018-12-20] MEDS: Levothyroxine Sodium 25 MCG TAB PO SCH (06:10)
[2018-12-20] MEDS ORDERED: Senokot 8.6 MG TAB PO SCH (06:30)
[2018-12-20] MEDS ORDERED: Lactated Ringer's 1,000 ML IV SCH (06:30)
--- NOTE | 2018-12-20 06:38 | PDOC.FM ---
- Subjective Subjective: NAEO. Patient had a BM overnight. Still denies pain but reports persistent SOB. Denies any fever/chills but still no appetite. - Objective MAR Reviewed: Yes Vital Signs & Weight: Vital Signs (12 hours) Temp Pulse Resp BP Pulse Ox 12/19/18 20:00 95 12/19/18 19:56 98.2 F 79 16 123/59 L 95 Weight Admit Weight 57.334 kg Weight 71.804 kg I&O: 12/18/18 12/19/18 12/20/18 06:59 06:59 06:59 Intake Total 850 1440 480 Output Total 1250 1375 725 Balance -400 65 -245 Result Diagrams: 12/20/18 04:55 12/20/18 04:55 Phys Exam - Physical Examination Constitutional: NAD HEENT: moist MMs scleral icterus noted Neck: supple, full ROM Respiratory: no wheezing, no rales, no rhonchi, clear to auscultation bilateral Cardiovascular: RRR, no significant murmur Gastrointestinal: soft, non-tender, no distention Musculoskeletal: edema present (in B/L LEs) Neurological: non-focal, moves all 4 limbs Psychiatric: normal affect, A&O x 3 Deviation from normal: jaundiced Dx/Plan (1) Acute respiratory failure with hypoxia Code(s): J96.01 - ACUTE RESPIRATORY FAILURE WITH HYPOXIA Status: Acute (2) GI bleed Code(s): K92.2 - GASTROINTESTINAL HEMORRHAGE, UNSPECIFIED Status: Acute Qualifiers: GI bleed type/associated pathology: melena Qualified Code(s): K92.1 - Melena (3) HLD (hyperlipidemia) Code(s): E78.5 - HYPERLIPIDEMIA, UNSPECIFIED Status: Acute (4) Hypercalcemia Code(s): E83.52 - HYPERCALCEMIA Status: Acute (5) Hypokalemia Code(s): E87.6 - HYPOKALEMIA Status: Acute (6) Tachycardia Code(s): R00.0 - TACHYCARDIA, UNSPECIFIED Status: Acute (7) Transaminitis Code(s): R74.0 - NONSPEC ELEV OF LEVELS OF TRANSAMNS & LACTIC ACID DEHYDRGNSE Status: Acute (8) Liver mass, right lobe Code(s): R16.0 - HEPATOMEGALY, NOT ELSEWHERE CLASSIFIED Status: Acute (9) Hypertension Code(s): I10 - ESSENTIAL (PRIMARY) HYPERTENSION Status: Chronic - Plan Plan: Metastatic Colon Cancer -Dr. Hall (GI) performed colonoscopy on 12/13/18, biopsy report indicated focal dysplasia -Dr. Lance (IR) performed CT-guided liver biopsy on 12/15/18, biopsy report indicated poorly differentiated carcinoma -Currently on Soft Mechanical Diet with Mighty Shakes -Protonix for GI prophylaxis -Hospice & PC on board for anticipated d/c with home hospice vs. NH w/ hospice given poor prognosis Blood loss anemia 2/2 Metastatic Colon Cancer -Melena x3 weeks but is currently asymptomatic. Hgb has remained stable at ~10 for last few days. Will continue to monitor & transfuse PRN. Acute Hypoxic Respiratory Failure -Will continue supplemental O2 PRN to maintain sats & keep patient comfortable - CXR from yesterday significantly improved with no effusions so suspect mass effect from liver & lung mets attributing to hypoxia -Will continue monitor respiratory status closely. Leukocytosis, improving -WBC stable at 36 this AM -Most likely a leukomoid reaction 2/2 to metastatic cancer -Will continue to monitor Hypercalcemia, improving -Corrected Ca 13.2 corrected for low albumin this AM. Will d/c IVFs & continue lasix & continue to trend. -Will consider zoledronic acid infusion should levels increase &/or patient becomes symptomatic from high Ca levels. Elevated TSH -TSH 8 at previous hospital -T3: 0.75 -T4: < 1 - Continue synthroid 25mcg QD HTN -BPs WNLs overnight. Will continue to monitor MARCO ANTONIO on CKDII, resolved -Cr 0.98 this AM w/ eGFR of 54, slightly below patient's baseline limits. Suspect 2/2 poor PO intake. Will continue IVFs today & continue to monitor. AMS, improved -Likely delirium vs dementia vs hepatic encephalopathy vs hypoxic encephalopathy vs metabolic from hyperCa -Patient appears improved, will continue to monitor Hypokalemia, resolved -K 4.1 this AM. Will continue to monitor & replace PRN. Dispo: Will continue to keep patient comfortable pending another hospice evaluation later today. Anticipate d/c to NH w/ hospice vs. home with hospice before end of week. VTE: SCDs & Lovenox Diet: Soft Mechanical with Mighty Shakes Code: DNAR Addendum - Attending - Attending Attestation Date/Time: 12/20/18 1223 I personally evaluated the patient and discussed the management with Dr. Grace I agree with the History, Examination, Assessment and Plan documented above with any addition or exceptions noted below. 83 yo female presented for evaluation of GI blood loss admitted for metastatic disease. HD#9 No acute changes overnight. Still without appetite. Continues to deny pain or discomfort. Very fatigued. VS, labs, imaging reviewed Agree with PE as documented by resident 1. Metastatic disease: Likely GI origin. Lesions to liver and lungs. Onc following. Patient unable to tolerate treatment. Family has decided to go with [facility]. Will transition this afternoon. 2. Hypercalcemia: 2/2 malignancy. Asymptomatic. Will continue gentle IVFs as needed. Keep less than 13. Stop HCTZ. Add Lasix. Zoledronic acid if needed. 3. HTN: Now with hypotension. Hold medications. Will continue lasix as tolerated. 4. HLD: Hold statin 5. MARCO ANTONIO on CKD: Resolved. 6. Microcytic anemia: GI blood loss Transition to intxt hospice this afternoon. Pair down medications. Remove IV line. Comfort measures only. Sindy
[2018-12-20] MEDS ORDERED: Furosemide 40 MG TAB PO SCH (07:30)
[2018-12-20] MEDS ORDERED: Potassium Chloride 20 MEQ TAB PO SCH (08:00)
[2018-12-20] MEDS: Enoxaparin Sodium 40 MG/0.4 ML SYRINGE SC SCH (08:53)
[2018-12-20] MEDS: Potassium Chloride 20 MEQ TAB PO SCH (08:53)
[2018-12-20] MEDS: Polyethylene Glycol 3350 17 GM Packet PO SCH (08:54)
[2018-12-20 08:56] VITALS: BP 126/58
[2018-12-20 13:28] VITALS: TEMP 98.8
--- NOTE | 2018-12-21 09:36 | DIS ---
DATE OF ADMISSION: 12/11/2018 DATE OF DISCHARGE: 12/20/2018 RESIDENT: Alicia Grace MD PRIMARY CARE PHYSICIAN: Jose Hughes MD CONSULTS: 1. Gastroenterology, Dr. Aliyah Hall. 2. Oncology, Kacy Fontenot. 3. Palliative Care, Aspen Hare. PROCEDURES: 1. Chest/thorax CTA on 12/11/2018, which showed mild bilateral pleural effusions and mild bibasilar atelectatic lung changes with pulmonary nodules and liver metastases. 2. Abdominal ultrasound on 12/12/2018, which showed diffuse liver masses, very suspicious for metastatic disease and enlarged liver. 3. Venogram on 12/12/2018, which showed no evidence of DVT in either lower extremity. 4. Colonoscopy with polypectomy, biopsy on 12/13/2018, which showed left-sided diverticular disease with a large polyp in the sigmoid colon area, status post biopsy and polypectomy. 5. Liver biopsy CT, which showed multiple hypodense metastatic lesions throughout each lobe of the liver with a technically successful percutaneous CT-guided biopsy of the right hepatic lobe lesion. 6. Chest x-ray on 12/15/2018, which showed enlarging effusions and mild progressive pulmonary edema. 7. Chest x-ray on 12/19/2018, which showed no evidence of an acute cardiopulmonary process. PRIMARY DIAGNOSES: 1. 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 2. Hypercalcemia secondary to malignancy. SECONDARY DIAGNOSES: 1. Hypertension. 2. Hyperlipidemia. 3. Coronary artery disease. 4. Osteoarthritis. DISCHARGE MEDICATIONS: 1. Flonase 1 spray in each nares daily. 2. Zofran 4 mg p.o. q.6 hours p.r.n. 3. Zofran 4 mg IV push q.6 hours p.r.n. 4. Senokot two tabs p.o. at bedtime p.r.n. 5. MiraLAX 17 g p.o. p.r.n. DISCONTINUED MEDICATIONS: 1. Diltiazem 240 mg p.o. daily. 2. Hydrochlorothiazide 25 mg p.o. q.a.m. 3. Diclofenac 50 mg p.o. q.8 hours p.r.n. 4. Aspirin 325 mg p.o. daily. 5. Tizanidine 2 mg p.o. q.8 hours p.r.n. 6. Atorvastatin 20 mg p.o. daily. 7. Nitroglycerin 0.4 mg sublingual p.r.n. 8. Folic acid 1 mg p.o. daily. 9. Nexium 20 mg p.o. daily. 10. Ezetimibe 10 mg p.o. daily. 11. Cephalexin 500 mg p.o. daily. HOSPITAL COURSE: Mrs. Sharma is an 83-year-old female with a past medical history significant for hypertension, hyperlipidemia, who was transferred from [place] after presenting there with gastrointestinal bleeding with associated generalized weakness and shortness of breath with concern for possible metastatic cancer. The patient was initially admitted in [place] by her primary care provider for generalized weakness and melena for 2 to 3 weeks and her initial workup included CT revealing multiple nodules in her lungs as well as extensive masses replacing most of the normal hepatic parenchyma and enlarged lymph nodes in the left lower quadrant adjacent to the segment of the sigmoid colon with bowel wall thickening. Dr. Hall was consulted in [place] for a planned colonoscopy; however, the patient was unable to tolerate the bowel prep and becoming altered with an associated elevated white blood count and increasing oxygen requirements. Decision was therefore made to have the patient transferred to [facility] for further evaluation and management. On arrival to [place], the patient had an abdominal ultrasound, which revealed liver metastases, and a venogram, which was negative for any DVTs in her lower extremities. Her vitals were noted to be within normal limits with the exception of hypoxia requiring 2.5 L via nasal cannula to maintain adequate saturations. Lab work obtained in [place] just prior to transfer was reviewed and was notable for an elevated white blood count of 25, hemoglobin of 10.4, potassium of 3.0, calcium of 10.8. AST and ALT of 429 and 111, and alkaline phosphatase of 469 and total bilirubin of 2.3, and an ammonia level of 22. The patient was admitted to the oncology floor for continued workup and evaluation of her bleeding and suspected malignancy. On 12/13, the patient underwent colonoscopy with Dr. Hall and a sigmoid polyp was identified and removed and sent for analysis from pathology. The polyp resulted as poorly differentiated carcinoma with extensive necrosis, suggestive of gastrointestinal origin. The patient also underwent a liver biopsy on 12/15/2018, which confirmed the suspicion of hepatic metastases, also resulting as poorly differentiated carcinoma with extensive necrosis suggestive of GI origin. Regarding the patient's hypercalcemia, the patient remained asymptomatic for a large portion of her hospitalization and her levels were lowered to a moderate level of 11.6 on the date of discharge with p.r.n. IV fluids and diuretic therapy. Ultimately, the decision was made to admit the patient to inpatient hospice as her prognosis was deemed to be very poor by the oncology team and Dr. Hall. Palliative Care was therefore consulted and assisted the patient's family in getting the patient accepted into [facility] to which the patient was discharged on 12/20/2018 in guarded condition. DISCHARGE INSTRUCTIONS: 1. Location: [facility]. 2. Diet: No restrictions. 3. Activity: As tolerated. 4. Followup: Due to the patient's poor prognosis, no specific followup was provided with her discharge instructions; however, her primary care provider, Dr. Jose Hughes will be updated of her new location so that he can follow up with the patient as he feels is necessary. Job ID: [id number]
== END 2018-12-20 15:10 | disposition hospice, inpatient (51) | DRG 374 ==
LOC: 2NO 20:51 → ONC 12-18 19:02
PROVIDERS: ADMIT Family Medicine; ATTEND Family Medicine
PROC: 0DBN8ZZ Excision of Sigmoid Colon, Via Natural or Artificial Opening Endoscopic (ICD-10-PCS; principal; 2018-12-13)
PROC: 0DBN8ZX Excision of Sigmoid Colon, Via Natural or Artificial Opening Endoscopic, Diagnostic (ICD-10-PCS; 2018-12-13)
PROC: 0FB13ZX Excision of Right Lobe Liver, Percutaneous Approach, Diagnostic (ICD-10-PCS; 2018-12-15)
DX: C19 Malignant neoplasm of rectosigmoid junction (principal); J96.01 Acute respiratory failure with hypoxia; K92.1 Melena; N17.9 Acute kidney failure, unspecified; E87.2 Acidosis; E44.1 Mild protein-calorie malnutrition; C78.7 Secondary malignant neoplasm of liver and intrahepatic bile duct; G93.1 Anoxic brain damage, not elsewhere classified; C78.00 Secondary malignant neoplasm of unspecified lung; K92.2 Gastrointestinal hemorrhage, unspecified; Z51.5 Encounter for palliative care; Z66 Do not resuscitate; N18.3 Chronic kidney disease, stage 3 (moderate); D12.5 Benign neoplasm of sigmoid colon; E78.5 Hyperlipidemia, unspecified; M19.91 Primary osteoarthritis, unspecified site; E83.52 Hypercalcemia; E87.6 Hypokalemia; R74.0 Nonspecific elevation of levels of transaminase and lactic acid dehydrogenase [LDH]; D72.829 Elevated white blood cell count, unspecified; D64.9 Anemia, unspecified; D63.0 Anemia in neoplastic disease; K57.30 Diverticulosis of large intestine without perforation or abscess without bleeding; K72.90 Hepatic failure, unspecified without coma; I12.9 Hypertensive chronic kidney disease with stage 1 through stage 4 chronic kidney disease, or unspecified chronic kidney disease; I25.10 Atherosclerotic heart disease of native coronary artery without angina pectoris; Z87.440 Personal history of urinary (tract) infections; Z91.018 Allergy to other foods; Z91.048 Other nonmedicinal substance allergy status; Z79.899 Other long term (current) drug therapy; Z68.28 Body mass index [BMI] 28.0-28.9, adult
CPT/HCPCS: 36415; 36416; 47000; 71045; 71275; 76705; 77012; 80053; 80202; 81001; 82105; 82140; 82378; 82805; 83735; 83880; 84100; 84145; 84439; 84481; 85025; 85610; 85730; 87040; 87086; 88305; 88307; 88333; 88334; 88341; 88342; 90471; 90670; 93970; C9113; G0009; J1650; J1940; J2250; J2543; J2704; J3010; J3370; J3475; J3480; J3489; J3490; J7050; Q9966

== ENCOUNTER 2018-12-20 15:30 | Inpatient (IN) | payer OTHER ==
[2018-12-20] MEDS ORDERED: Senokot 8.6 MG TAB PO PRN (15:48)
[2018-12-20] MEDS ORDERED: Acetaminophen 650 MG Suppository PR PRN (15:48)
[2018-12-20] MEDS ORDERED: Lorazepam 2 MG/ML VIAL SLOW IVP PRN (15:48)
[2018-12-20] MEDS ORDERED: diphenhydrAMINE 50 MG/ML VIAL IVP PRN (15:48)
[2018-12-20] MEDS ORDERED: Ondansetron PF 4 MG/2 ML Vial IVP PRN (15:48)
[2018-12-20] MEDS ORDERED: Scopolamine 1.5 mg/72 hour Patch TOP PRN (15:48)
[2018-12-20] MEDS ORDERED: Morphine 2 MG/ML SYRINGE SLOW IVP PRN (15:50)
[2018-12-20] MEDS ORDERED: Morphine 2 MG/ML SYRINGE SLOW IVP SCH (18:00)
[2018-12-20 18:20] VITALS: BMI 28.0
[2018-12-21] MEDS: Morphine 2 MG/ML SYRINGE SLOW IVP PRN ×2 (10:14→15:42)
[2018-12-22] MEDS: Morphine 2 MG/ML SYRINGE SLOW IVP PRN (01:36)
[2018-12-22] MEDS ORDERED: Lorazepam 1 MG TAB SL PRN (08:28)
[2018-12-22] MEDS: Morphine 10 MG/0.5 ML ORAL SYRINGE SL PRN (08:44)
[2018-12-23] MEDS: Morphine 10 MG/0.5 ML ORAL SYRINGE SL PRN ×3 (09:50→16:44)
[2018-12-23] MEDS ORDERED: Lorazepam 1 MG TAB SL PRN (12:03)
[2018-12-23] MEDS ORDERED: Lorazepam 0.5 MG TAB SL PRN ×2 (12:05→12:15)
[2018-12-23] MEDS: Lorazepam 0.5 MG TAB SL SCH ×2 (18:14→23:56)
[2018-12-23] MEDS: Morphine 10 MG/0.5 ML ORAL SYRINGE SL SCH ×2 (18:18→20:51)
[2018-12-23 19:50] VITALS: BP 96/44; TEMP 99.4
--- NOTE | 2018-12-26 10:55 | DIS ---
DATE OF ADMISSION: 12/20/2018 DATE OF DISCHARGE: 12/24/2018 DATE OF : 12/24/2018. TIME OF : 01:10 a.m. BRIEF SUMMARY OF HISTORY AND PHYSICAL: The patient was an unfortunate 83-year-old white female with significant past medical history of hypertension and hyperlipidemia, who was transferred initially from [place] with a GI bleed associated with generalized weakness and shortness of breath. She underwent a CT scan, which showed multiple nodules in her lung as well as extensive masses replacing most of the normal hepatic parenchyma with enlarged lymph nodes in her left lower quadrant. Since patient worsened, she was transferred to [facility]. At that time, the patient was admitted to Oncology floor for continued workup and evaluation of her malignancy as well as her GI bleeding. She underwent a colonoscopy with Dr. Hall, where her polyps were removed. The patient underwent a liver biopsy, which confirmed hepatic metastases, which showed poorly differentiated carcinoma with extensive necrosis suggesting a GI origin. The patient overall had extremely poor prognosis and deteriorated in her overall status with hypoxia requiring oxygen, air hunger, anxiety, and severe pain and a decision was made to transfer the patient to inpatient hospice after the family and son discussed with Dr. Hall and Oncology team. In addition, the patient was consulted with Palliative Care and discussed and it was determined to admit to inpatient hospice. During her inpatient hospice stay, she did have air hunger that was treated with morphine, anxiety was treated with Ativan, and secretions were reduced with scopolamine patch. Morphine was also utilized for pain control. Over the next few days, the patient seemed to stabilize with improvement in her overall symptom management and son was at her side almost continuously throughout her entire inpatient hospice stay. On 12/24/2018 at 0110 hours, the patient was found by nursing staff to be without respirations, without pulse, no response to painful stimuli, and she was pronounced with her son at her bedside. The cause was asystole, likely secondary to a cardiac arrhythmia ultimately because of the patient's diffuse metastatic carcinoma. Body was released to home, and all questions of her son were answered. Job ID: [id number]
--- NOTE | 2019-01-18 03:47 | PQF ---
AYAH AHMADI KIA E MD [id number] CLINICAL DOCUMENTATION CLARIFICATION FORM: POST DISCHARGE Addendum to original discharge summary date: ____ Late entry note date: __ DATE: 01/18/2019 ATTN: NOHEMY ACEVEDO Please exercise your independent, professional judgment in responding to the clarification form. Clinical indicators are provided on the bottom of this form for your review Can you please specify the condition being treated during this admission Please check appropriate box(s): [ ] Acute Respiratory Failure: [ ] with Hypoxia[ ] with Hypercapnia [ ] Acute Respiratory Insufficiency [ ] Hypoxia [ ] Other diagnosis please specify [ ] Unable to determine In addition, please specify: Present on Admission (POA): [ ] Yes [ ] No [ ] Unable to determine For continuity of documentation, please document condition throughout progress notes and discharge summary. Thank You. CLINICAL INDICATORS - SIGNS / SYMPTOMS / LABS - DS 01/12 Nohemy Navarrete : BRIEF SUMMARY OF HISTORY AND PHYSICAL The patient overall had extremely poor prognosis and deteriorated in her overall status with hypoxia requiring oxygen, air hunger, anxiety, and severe pain and a decision was made to transfer the patient to inpatient hospice after the family and son discussed with Dr. Hall and Oncology. During her inpatient hospice stay, she did have air hunger that was treated with morphine - RN Tahira Velez 12/21 - 1 mg morphine given for complaints of dyspnea by pt. O2 saturation at 89, Oxygen raised to 6L for pt comfort - Vital Signs : RR: 12/20 -12/23 - 22 BPM, O2 Sat : 12/22- 93, 12/23 92 - Clinical Panels (Respiratory) 01/19 Respiratory Effort : Slightly labored breathing Breath Sounds: Diminished RISK FACTORS - DS 01/12 Nohmey Navarrete - multiple nodules in her lung - DS 01/12 Nohemy Navarrete Hepatic Metastases TREATMENTS: - Clinical Panels : Respiratory -O2 Sat Monitoring - - Clinical Panels : Respiratory - O2 Nasal Cannula : 4 6 L (This form is maintained as a part of the permanent medical record) 2014 [employer] All Rights Reserved Shay [email or web address] [not provided] [email or web address]
== END 2018-12-24 01:10 | disposition expired | DRG 951 ==
LOC: ONC 15:30
PROVIDERS: ADMIT Family Medicine; ATTEND Family Medicine
DX: Z51.5 Encounter for palliative care (principal); C78.7 Secondary malignant neoplasm of liver and intrahepatic bile duct; E78.5 Hyperlipidemia, unspecified; R91.8 Other nonspecific abnormal finding of lung field; Z66 Do not resuscitate; J31.0 Chronic rhinitis; M19.90 Unspecified osteoarthritis, unspecified site; I12.9 Hypertensive chronic kidney disease with stage 1 through stage 4 chronic kidney disease, or unspecified chronic kidney disease; N18.2 Chronic kidney disease, stage 2 (mild); Z87.440 Personal history of urinary (tract) infections; Z91.048 Other nonmedicinal substance allergy status; Z91.018 Allergy to other foods; Z79.899 Other long term (current) drug therapy
CPT/HCPCS: J2270